=== PATIENT | male | born 1935 | race Caucasian/White ===

== ENCOUNTER 2016-07-01 11:03 | Observation (INO) | payer BC, OTHER ==
--- NOTE | 2016-07-01 11:19 | PDOC ---
*Physical Exam - Physical Exam Comments: 07/01/16 11:19 MIDLEVEL NOTE Pt seen by Midlevel Provider under my direct supervision. Pt interviewed and examined. Ancillary studies reviewed. I agree with plan as outlined by Midlevel Provider. 07/01/16 11:58 EKG Atrial fibrillation, with a ventricular response rate of 74 Normal QRS duration Normal QTC Nonspecific ST-T waves Atrial fibrillation was present on the 2014 EKG 07/01/16 14:32 Laboratory Results - last 24 hr 07/01/16 07/01/16 07/01/16 11:59 11:59 11:59 WBC 11.8 H RBC 4.30 Hgb 14.5 Hct 43.3 MCV 100.6 H MCHC 33.6 RDW 13.5 Plt Count 206 MPV 8.3 Neutrophils % 87.4 H Lymphocytes % 5.0 L Monocytes % 6.9 D Eosinophils % 0.4 D Basophils % 0.3 INR 3.91 H Sodium Potassium Chloride Carbon Dioxide Anion Gap BUN Creatinine Creat Clearance w eGFR Random Glucose Calcium Magnesium Total Bilirubin AST ALT Alkaline Phosphatase Total Protein Albumin Urine Color Ltyellow Urine Appearance Clear Urine pH 7.0 Ur Specific [place] 1.008 Urine Protein 2+ H Urine Glucose (UA) Negative Urine Ketones Negative Urine Blood 2+ H Urine Nitrite Negative Urine Bilirubin Negative Urine Urobilinogen Negative Ur Leukocyte Esterase Negative Urine RBC 3 Urine WBC 1 Ur Epithelial Cells Rare 07/01/16 12:00 WBC RBC Hgb Hct MCV MCHC RDW Plt Count MPV Neutrophils % Lymphocytes % Monocytes % Eosinophils % Basophils % INR Sodium Cancelled Potassium Cancelled Chloride Cancelled Carbon Dioxide Cancelled Anion Gap Cancelled BUN Cancelled Creatinine Cancelled Creat Clearance w eGFR Cancelled Random Glucose Cancelled Calcium Cancelled Magnesium Cancelled Total Bilirubin Cancelled AST Cancelled ALT Cancelled Alkaline Phosphatase Cancelled Total Protein Cancelled Albumin Cancelled Urine Color Urine Appearance Urine pH Ur Specific [place] Urine Protein Urine Glucose (UA) Urine Ketones Urine Blood Urine Nitrite Urine Bilirubin Urine Urobilinogen Ur Leukocyte Esterase Urine RBC Urine WBC Ur Epithelial Cells 07/01/16 14:33 LS-spine Advanced DJD Calcifications over the right upper quadrant-possible renal or gallstones There is diffuse DJD and disc space narrowing Right hip and pelvis No acute fracture is seen There is a right total hip arthroplasty stable in appearance when compared to the prior study CT scan of the head without NAD ED Treatment Course - LABORATORY CBC & Chemistry Diagram: 07/02/16 06:40 07/02/16 06:40 *DC/Admit/Observation/Transfer Diagnosis at time of Disposition: Anticoagulated on Coumadin, Weakness, Inability to ambulate due to multiple joints Head injury Qualifiers: Encounter type: initial encounter Qualified Code(s): S09.90XA - Unspecified injury of head, initial encounter Fall Qualifiers: Encounter type: initial encounter Qualified Code(s): W19.XXXA - Unspecified fall, initial encounter - Discharge Dispostion Admit: Yes
[2016-07-01 11:22] VITALS: BMI 31.2
[2016-07-01 12:13] LABS: BASOPHIL 0.3 % (0-2.0); EOSINOPHIL 0.4 % (0-4.5); MCH 33.8 pg (25.7-33.7); MCHC 33.6 g/dl (32.0-35.9); MEAN CELL VOLUME 100.6 fl (80-96); MEAN PLT VOLUME 8.3 fl (7.5-11.1); NEUTROPHILS 87.4 % (42.8-82.8); PLATELET COUNT 206 K/MM3 (134-434); RDW 13.5 % (11.9-15.9); WHITE BLOOD COUNT 11.8 K/mm3 (4.0-10.0)
[2016-07-01 12:21] LABS: URINE APPEARANCE CLEAR; URINE BILIRUBIN NEGATIVE (NEGATIVE); URINE COLOR LTYELLOW; URINE GLUCOSE (UA) NEGATIVE (NEGATIVE); URINE KETONE NEGATIVE (NEGATIVE); URINE LEUK ESTERASE NEGATIVE (NEGATIVE); URINE NITRITE NEGATIVE (NEGATIVE); URINE UROBILINOGEN NEGATIVE E.U./dl (0.2-1.0)
[2016-07-01] MEDS ORDERED: morphine CARPU-JECT 2 MG/1 ML DISP.SYRIN IVPUSH ONE ×2 (12:23→22:33)
[2016-07-01] MEDS ORDERED: morphine CARPU-JECT 4 MG/1 ML DISP.SYRIN ONE (12:27)
[2016-07-01 12:28] LABS: URINE BLOOD 2+ (NEGATIVE); URINE PROTEIN 2+ (NEGATIVE)
[2016-07-01 12:38] LABS: URINE RBC 3 /hpf (0-3); URINE WBC 1 /hpf (3-5)
--- NOTE | 2016-07-01 13:09 | PDOC ---
History of Present Illness - General Chief Complaint: Injury Stated Complaint: FALL Time Seen by Provider: 07/01/16 11:16 History Source: Patient Exam Limitations: No Limitations - History of Present Illness Initial Comments: 07/01/16 13:10 80-year-old male status post slipped in the bathroom this morning. As per patient patient was getting up a toilet and when he stood up to grab the towel bar which he normally does he was unsteady in his feet causing him to slip backwards and lowered himself to the ground. Patient states once on the ground was unable to get up and did bang the left side of his head on the toilet but denies any headache presently dizziness, or nausea. Patient also states has been having worsening arthritis and bilateral knees and had a total hip replacement done to his right side one year ago. Patient states for the past month has had progressively worsening right lower back aching radiating down his right leg without discoloration or edema. Patient does state symptoms worsen after he took a long walk with his daughter in the park and now states is unable to lift his leg up completely. Patient is currently on Coumadin secondary to A. fib and denies any recent change in dosing. Timing/Duration: 1-3 hours Severity: moderate Associated Symptoms: reports: weakness Past History - Past Medical History Allergies/Adverse Reactions: Allergies Allergy/AdvReac Type Severity Reaction Status Date / Time Penicillins Allergy Unknown Verified 07/01/16 11:18 aspirin Allergy Rash Verified 07/01/16 11:18 Home Medications: Ambulatory Orders Atorvastatin Ca [Lipitor] 10 mg PO DAILY 11/28/13 Finasteride 5 mg PO HS 11/28/13 Irbesartan [Avapro] 300 mg PO DAILY 11/28/13 Metoprolol Succinate [Toprol Xl] 50 mg PO DAILY 11/28/13 Tamsulosin HCl [Flomax -] 0.4 mg PO DAILY 11/28/13 Folic Acid 1 mg PO DAILY tablet 12/19/13 Furosemide [Lasix -] 40 mg PO DAILY 03/06/14 Tramadol HCl 50 mg PO TID PRN #15 tablet 01/26/15 Acetaminophen [Tylenol] 500 mg PO Q6H 07/01/16 Cholecalciferol (Vitamin D3) [Vitamin D3 -] 1,000 unit PO DAILY 07/01/16 Esomeprazole Magnesium 40 mg PO DAILY 07/01/16 Hypromellose/Pf [Retaine Hpmc 0.3% Eye Drops] 10 ml OP DAILY 07/01/16 Multivit-Min/FA/Lycopen/Lutein [Centrum Silver Tablet] 1 each PO DAILY 07/01/16 Warfarin Sodium [Coumadin] 2.5 mg PO DAILY 07/01/16 Anemia: No Asthma: No Cancer: Yes (Colon) Cardiac Disorders: Yes (A-fib) CVA: No COPD: No CHF: No Dementia: No Diabetes: No GI Disorders: Yes (Colon Ca,GERD) Disorders: No HTN: Yes Hypercholesterolemia: Yes Liver Disease: No Suicide Attempt (Hx): No Seizures: No Thyroid Disease: No - Surgical History Abdominal Surgery: Yes (Colon Resection 10 yrs ago) Appendectomy: No Cardiac Surgery: No Cholecystectomy: No Lung Surgery: No Neurologic Surgery: No Orthopedic Surgery: No - Immunization History Td Vaccination: Yes Immunization Up to Date: (UNSURE) - Psycho/Social/Smoking Cessation Hx Anxiety: No Suicidal Ideation: No Smoking Status: No Smoking History: Never smoked Have you smoked in the past 12 months: No Number of Cigarettes Smoked Daily: 0 Cigars Per Day: 0 Hx Alcohol Use: Yes (SOCIAL) Drug/Substance Use Hx: No Substance Use Type: None Hx Substance Use Treatment: No Patient Lives Alone: No Review of Systems - Review of Systems Able to Perform ROS?: Yes Constitutional: Yes: Weakness HEENTM: No: Symptoms Reported Respiratory: No: Symptoms reported Cardiac (ROS): No: Symptoms Reported ABD/GI: No: Symptoms Reported : No: Symptoms Reported Musculoskeletal: Yes: Back Pain, Joint Pain Integumentary: No: Symptoms Reported Neurological: Yes: Weakness. No: Numbness, Dizziness Endocrine: No: Symptoms Reported Hematologic/Lymphatic: No: Symptoms Reported *Physical Exam - Vital Signs Last Vital Signs Temp Pulse Resp BP Pulse Ox 98.1 F 82 18 156/84 100 07/01/16 11:21 07/01/16 11:21 07/01/16 11:21 07/01/16 11:21 07/01/16 11:21 - Physical Exam General Appearance: Yes: Nourished, Appropriately Dressed. No: Apparent Distress HEENT: positive: EOMI, YOHANNES, TMs Normal, Pharynx Normal. negative: Pale Conjunctivae Neck: positive: Supple. negative: Tender, Decreased range of motion Respiratory/Chest: positive: Lungs Clear, Normal Breath Sounds. negative: Respiratory Distress, Accessory Muscle Use Cardiovascular: positive: Regular Rhythm, Regular Rate. negative: Murmur Gastrointestinal/Abdominal: positive: Soft. negative: Tenderness Musculoskeletal: negative: Vertebral Tenderness (no midline tenderness) Extremity: positive: Normal Capillary Refill, Normal Inspection, Tender (rt inguinal). negative: Normal Range of Motion (unble to raise leg off of stretcher more than approx 12" ) Integumentary: positive: Normal Color, Warm, Moist Neurologic: positive: Normal Mood/Affect, Motor Strength 5/5 Heart Score/ECG Review - ECG Intrepretation Rhythm: Regular Rhythm (74 A. fib rate 74 A. fib no acute findings.) ED Treatment Course - LABORATORY CBC & Chemistry Diagram: 07/01/16 11:59 07/01/16 14:19 - ADDITIONAL ORDERS Additional order review: Laboratory Results 07/01/16 07/01/16 12:00 11:59 Sodium Cancelled Potassium Cancelled Chloride Cancelled Carbon Dioxide Cancelled Anion Gap Cancelled BUN Cancelled Creatinine Cancelled Creat Clearance w eGFR Cancelled Random Glucose Cancelled Calcium Cancelled Magnesium Cancelled Total Bilirubin Cancelled AST Cancelled ALT Cancelled Alkaline Phosphatase Cancelled Total Protein Cancelled Albumin Cancelled Urine Color Ltyellow Urine Appearance Clear Urine pH 7.0 Ur Specific [place] 1.008 Urine Protein 2+ H Urine Glucose (UA) Negative Urine Ketones Negative Urine Blood 2+ H Urine Nitrite Negative Urine Bilirubin Negative Urine Urobilinogen Negative Ur Leukocyte Esterase Negative 07/01/16 11:59 RBC 4.30 MCV 100.6 H MCHC 33.6 RDW 13.5 MPV 8.3 Neutrophils % 87.4 H Lymphocytes % 5.0 L Monocytes % 6.9 D Eosinophils % 0.4 D Basophils % 0.3 - RADIOLOGY Radiology Studies Ordered: Category Date Time Status HEAD CT WITHOUT CONTRAST [CT] Stat CT Scan 07/01/16 11:53 Ordered HIP & PELVIS-RIGHT [RAD] Stat Radiology 07/01/16 11:53 Ordered SPINE-LUMBAR ONLY [RAD] Stat Radiology 07/01/16 11:53 Ordered - Medications Given in the ED: ED Medications Discontinued Medications Generic Name Dose Route Start Last Admin Trade Name Freq PRN Reason Stop Dose Admin Morphine Sulfate 4 mg 07/01/16 12:23 07/01/16 12:31 Morphine Injection - IVPUSH 07/01/16 12:24 4 mg ONCE ONE Administration Medical Decision Making - Medical Decision Making 07/01/16 13:20 Patient here with status post slip this morning and for evaluation of worsening right hip right back, and bilateral knee pain. Patient states that hitting his head on the toilet bowl when trying to get back up but no acute or physical findings were noted on exam. Patient was ordered for labs, EKG, head CT, urine, right hip and lumbar spine x-ray. 07/01/16 15:47 Laboratory Tests 07/01/16 07/01/16 07/01/16 11:59 11:59 11:59 WBC 11.8 H Hgb 14.5 Hct 43.3 MCV 100.6 H Neutrophils % 87.4 H INR 3.91 H Sodium Potassium Chloride Carbon Dioxide Anion Gap BUN Creatinine Random Glucose Calcium Magnesium Total Bilirubin AST ALT Urine Protein 2+ H Urine Blood 2+ H Ur Leukocyte Esterase Negative Urine RBC 3 Urine WBC 1 07/01/16 14:19 WBC Hgb Hct MCV Neutrophils % INR Sodium 143 Potassium 4.0 Chloride 104 Carbon Dioxide 26 Anion Gap 13 BUN 9 Creatinine 0.6 L Random Glucose 84 Calcium 9.1 Magnesium 2.1 Total Bilirubin 0.5 AST 24 ALT 20 Urine Protein Urine Blood Ur Leukocyte Esterase Urine RBC Urine WBC Patient has received morphine IV and also now Percocet for pain control. Patient is unable to ambulate secondary to unbalance unsteadiness concerning for safety. Patient's physician Dr. Luna does not admit here but does admit to the hospitalist so will contact hospitalist for admission. 07/01/16 15:[address] negative for intracranial pathology. hip and pelvis x-ray no acute fracture. Lumbar spine shows severe degenerative joint disease without acute findings. 07/01/16 15:57 Case discussed with [employer] [facility] hospitalist who accepted the case in to admit under to [facility]. *DC/Admit/Observation/Transfer Diagnosis at time of Disposition: Anticoagulated with warfarin, Weakness, Inability to ambulate due to multiple joints Injury of head Qualifiers: Encounter type: initial encounter Qualified Code(s): S09.90XA - Unspecified injury of head, initial encounter Fall Qualifiers: Encounter type: initial encounter Qualified Code(s): W19.XXXA - Unspecified fall, initial encounter - Discharge Dispostion Admit: Yes
[2016-07-01 13:10] LABS: INR 3.91 (0.82-1.09); PROTHROMBIN TIME (PATIENT) 44.2 SEC (9.98-11.88)
[2016-07-01] MEDS ORDERED: OXYCODONE/APAP 5/325MG COMBO TABLET PO ONE (14:14)
[2016-07-01] MEDS ORDERED: OXYCODONE/APAP 5/325MG COMBO TABLET ONE (14:42)
[2016-07-01 14:57] LABS: ALBUMIN 3.7 g/dl (3.4-5.0); ALK PHOS 70 U/L (45-117); ANION GAP 13 (8-16); BILIRUBIN,TOTAL 0.5 mg/dL (0.2-1.0); CALCIUM 9.1 mg/dL (8.5-10.1); CO2 26 mmol/L (21-32); COCKROFT - GAULT 162.74; CREATININE 0.6 mg/dL (0.7-1.3); GLUCOSE,RANDOM 84 mg/dL (74-106); MAGNESIUM 2.1 mg/dL (1.8-2.4); SGOT/AST 24 U/L (15-37); SGPT/ALT 20 U/L (12-78); TOT PROT 6.6 g/dl (6.4-8.2)
--- NOTE | 2016-07-01 18:55 | HP ---
CHIEF COMPLAINT: legs gave out PCP: Dr. Luna HISTORY OF PRESENT ILLNESS: 79 year old male with a PMHx of HTN, atrial fibrillation on warfarin, colon ca ( s/p resection and chemo), SBO, arthritis, presents to ER unable to ambulate. Patient states he was using bathroom, usually when he gets up from toilet he uses towel bar in front of him to help him rise up, when he attempted this time he was unable to hold himself up, fell to the floor. He usually uses walker at home. States that he was due for physical therapy but was unable to due to recent surgery for SBO. He does have a history of severe arthritis and claims he needs a total left knee replacement. He iuis able to move both lower extremities , but elimited and with pain. ER course was notable for: (1)leukocytosis, 11.8 (2)INR 3.91 (3)Lumbar spine; hip/pelvis and head CT negative for acute pathology Recent Travel: no PAST MEDICAL HISTORY: htn, a fib, hx colon ca PAST SURGICAL HISTORY: colon CA resection, right hip replacement, sx for sbo Social History: Smoking:no Alcohol:2-3 beers per night before dinner Drugs: no Family History: Allergies Penicillins Allergy (Unknown, Verified 07/01/16 11:18) aspirin Allergy (Verified 07/01/16 11:18) Rash HOME MEDICATIONS: Home Medications Medication Instructions Recorded Atorvastatin Ca [Lipitor] 10 mg PO DAILY 11/28/13 Finasteride 5 mg PO HS 11/28/13 Irbesartan [Avapro] 300 mg PO DAILY 11/28/13 Metoprolol Succinate [Toprol Xl] 50 mg PO DAILY 11/28/13 Tamsulosin HCl [Flomax -] 0.4 mg PO DAILY 11/28/13 Folic Acid 1 mg PO DAILY tablet 12/19/13 Furosemide [Lasix -] 40 mg PO DAILY 03/06/14 Tramadol HCl 50 mg PO TID PRN #15 tablet 01/26/15 Acetaminophen [Tylenol] 500 mg PO Q6H 07/01/16 Cholecalciferol (Vitamin D3) 1,000 unit PO DAILY 07/01/16 [Vitamin D3 -] Esomeprazole Magnesium 40 mg PO DAILY 07/01/16 Hypromellose/Pf [Retaine Hpmc 0.3% 10 ml OP DAILY 07/01/16 Eye Drops] Multivit-Min/FA/Lycopen/Lutein 1 each PO DAILY 07/01/16 [Centrum Silver Tablet] Warfarin Sodium [Coumadin] 2.5 mg PO DAILY 07/01/16 REVIEW OF SYSTEMS CONSTITUTIONAL: Absent: fever, chills, diaphoresis, generalized weakness, malaise, loss of appetite, weight change HEENT: Absent: rhinorrhea, nasal congestion, throat pain, throat swelling, difficulty swallowing, mouth swelling, ear pain, eye pain, visual changes CARDIOVASCULAR: Absent: chest pain, syncope, palpitations, irregular heart rate, lightheadedness , peripheral edema RESPIRATORY: Absent: cough, shortness of breath, dyspnea with exertion, orthopnea, wheezing, stridor, hemoptysis GASTROINTESTINAL: Absent: abdominal pain, abdominal distension, nausea, vomiting, diarrhea, constipation, melena, hematochezia GENITOURINARY: Absent: dysuria, frequency, urgency, hesitancy, hematuria, flank pain, genital pain MUSCULOSKELETAL: Positive: myalgia, arthralgia, joint swelling, Absent: back pain, neck pain SKIN: Absent: rash, itching, pallor HEMATOLOGIC/IMMUNOLOGIC: Absent: easy bleeding, easy bruising, lymphadenopathy, frequent infections ENDOCRINE: Absent: unexplained weight gain, unexplained weight loss, heat intolerance, cold intolerance NEUROLOGIC: Absent: headache, focal weakness or paresthesias, dizziness, unsteady gait, seizure, mental status changes, bladder or bowel incontinence PSYCHIATRIC: Absent: anxiety, depression, suicidal or homicidal ideation, hallucinations. PHYSICAL EXAMINATION Vital Signs - 24 hr 07/01/16 17:40 Temperature 97.8 F Pulse Rate [ 74 Right Radial] Respiratory 16 Rate Blood Pressure 143/74 [Left Arm] O2 Sat by Pulse 96 Oximetry (%) GENERAL: Awake, alert, and fully oriented, in no acute distress. HEAD: Normal with no signs of trauma. EYES: Pupils equal, round and reactive to light, extraocular movements intact, sclera anicteric, conjunctiva clear. No lid lag. EARS, NOSE, THROAT: Ears normal, nares patent, oropharynx clear without exudates. Moist mucous membranes. NECK: Normal range of motion, supple without lymphadenopathy, JVD, or masses. LUNGS: Breath sounds equal, clear to auscultation bilaterally. No wheezes, and no crackles. No accessory muscle use. HEART: Regular rate and rhythm, normal S1 and S2 without murmur, rub or gallop. ABDOMEN: Soft, nontender, not distended, normoactive bowel sounds, no guarding, no rebound, no masses. No hepatomegaly or splenomegaly. MUSCULOSKELETAL: Normal range of motion at all joints. No bony deformities or tenderness. No CVA tenderness. UPPER EXTREMITIES: 2+ pulses, warm, well-perfused. No cyanosis. No clubbing. No peripheral edema. LOWER EXTREMITIES: 2+ pulses, warm, well-perfused. No calf tenderness. No peripheral edema. Decreased ROM; full strength 5/5 ; Right thigh tightness NEUROLOGICAL: Cranial nerves II-XII intact. Normal speech. Normal gait. PSYCHIATRIC: Cooperative. Good eye contact. Appropriate mood and affect. SKIN: Warm, dry, normal turgor, no rashes or lesions noted, normal capillary refill. ASSESSMENT/PLAN: 80 year old male with PMHx atrial fibrillation, htn, arthritis, presents with bilateral leg weakness; unable to ambulate. #unable to ambulate most likey secondary to arthritis progressive DJD -Imaging negative for fracture/acute pathology -physical exam negative for swelling, erythema, normal strength -tylenol prn -tramodol prn -physical therapy evaluations -possible rehab placement #leukocytosis: -UA negative: -trend in am #atrial fibrillation -INR 3.91 ; will hold for now; repeat INR #hypertension: -cont home meds FEN: Fluids: po Electrolytes: wnl Diet: regular Vte prophyaxis: not indicated INR elevated Disposition: physical therapy eval Visit type - Emergency Visit Emergency Visit: Yes ED Registration Date: 07/01/16 Care time: The patient presented to the Emergency Department on the above date and was hospitalized for further evaluation of their emergent condition. - New Patient This patient is new to me today: Yes Date on this admission: 07/02/16 - Critical Care Critical Care patient: No
--- NOTE | 2016-07-01 19:03 | PN ---
Teaching Attending Note Name of Resident: Zaynab Ladd ATTENDING PHYSICIAN STATEMENT I saw and evaluated the patient. I reviewed the resident's note and discussed the case with the resident. I agree with the resident's findings and plan as documented. SUBJECTIVE: OBJECTIVE: Vital Signs Period Temp Pulse Resp BP Sys/Hurst Pulse Ox Last 24 Hr 97.8 F-99.6 F 74-82 16-20 134-156/74-84 96-100 ASSESSMENT AND PLAN:
[2016-07-01] MEDS: traMADol HCL 50 MG TABLET PO PRN (19:12)
[2016-07-01] MEDS: ACETAMINOPHEN 500 MG TABLET (FP) PO SCH (19:14)
[2016-07-01] MEDS ORDERED: FINASTERIDE 5 MG TABLET (FP) PO SCH (22:00)
[2016-07-01] MEDS ORDERED: ATORVASTATIN CA 10 MG TABLET (FP) PO SCH (22:00)
[2016-07-02] MEDS: ACETAMINOPHEN 500 MG TABLET (FP) PO SCH ×3 (06:07→12:52)
[2016-07-02 07:30] LABS: MCH 33.8 pg (25.7-33.7); MCHC 33.5 g/dl (32.0-35.9); MEAN CELL VOLUME 101.1 fl (80-96); MEAN PLT VOLUME 8.3 fl (7.5-11.1); PLATELET COUNT 161 K/MM3 (134-434); RDW 13.5 % (11.9-15.9); WHITE BLOOD COUNT 7.5 K/mm3 (4.0-10.0)
[2016-07-02 08:07] LABS: PROTHROMBIN TIME (PATIENT) 33.8 SEC (9.98-11.88)
--- NOTE | 2016-07-02 08:16 | EKG ---
Test Reason : Blood Pressure : / mmHG Vent. Rate : 074 BPM Atrial Rate : 288 BPM P-R Int : 000 ms QRS Dur : 084 ms QT Int : 360 ms P-R-T Axes : 000 -08 024 degrees QTc Int : 399 ms ATRIAL FIBRILLATION SEPTAL INFARCT , AGE UNDETERMINED ABNORMAL ECG NO PREVIOUS ECGS AVAILABLE Confirmed by ENID BRIDGES MD ([id number]) on 07/02/2016 8:15:59 AM Referred By: Confirmed By:ENID BRIDGES MD
[2016-07-02 08:19] LABS: CALCIUM 8.7 mg/dL (8.5-10.1)
[2016-07-02 08:22] LABS: COCKROFT - GAULT 195.29; CREATININE 0.5 mg/dL (0.7-1.3); MAGNESIUM 2.1 mg/dL (1.8-2.4); PHOSPHOROUS 2.2 mg/dL (2.5-4.9)
[2016-07-02] MEDS ORDERED: TAMSULOSIN HCL 0.4 MG CAP.ER.24H (FP) PO SCH (08:30)
[2016-07-02] MEDS: traMADol HCL 50 MG TABLET PO PRN (09:24)
[2016-07-02] MEDS ORDERED: METOPROLOL SUCCINATE 50 MG TAB.SR.24H (FP) PO SCH (10:00)
[2016-07-02] MEDS ORDERED: MINERAL OIL OU SCH (10:00)
[2016-07-02] MEDS ORDERED: FUROSEMIDE 40 MG TABLET (FP) PO SCH (10:00)
[2016-07-02] MEDS ORDERED: CHOLECALCIFEROL (VITAMIN D3) 1,000 UNIT TABLET (FP) PO SCH (10:00)
[2016-07-02] MEDS ORDERED: PANTOPRAZOLE 40 MG TABLET (FP) PO SCH (10:00)
[2016-07-02] MEDS ORDERED: FOLIC ACID 1 MG TABLET (FP) PO SCH (10:00)
[2016-07-02] MEDS ORDERED: LIGHT MINERAL OIL OU SCH (10:00)
[2016-07-02 12:09] VITALS: BP 138/73
[2016-07-02 14:17] VITALS: PULSE 66; TEMP 98.2
--- NOTE | 2016-07-02 17:55 | PN ---
Teaching Attending Note Name of Resident: Zaynab Ladd ATTENDING PHYSICIAN STATEMENT I saw and evaluated the patient. I reviewed the resident's note and discussed the case with the resident. I agree with the resident's findings and plan as documented. SUBJECTIVE: OBJECTIVE: Vital Signs Period Temp Pulse Resp BP Sys/Hurst Pulse Ox Last 24 Hr 97.7 F-99.6 F 66-90 16-20 110-145/56-82 96-96 ASSESSMENT AND PLAN:
[2016-07-02] MEDS ORDERED: WARFARIN NA 2.5 MG TABLET (FP) PO SCH (18:00)
== END 2016-07-02 16:44 | disposition home or self-care (01) ==
LOC: JER 11:03 → INTOOBSV 16:00 → JERBED 16:00 → UNDOADMOB 16:00 → J6S 18:05 → JERBED 18:05 → J6S 19:05
PROVIDERS: ADMIT Internal Medicine; ATTEND Internal Medicine
DX: M17.0 Bilateral primary osteoarthritis of knee (principal); R26.2 Difficulty in walking, not elsewhere classified; D72.829 Elevated white blood cell count, unspecified; I48.91 Unspecified atrial fibrillation; Z79.01 Long term (current) use of anticoagulants; M54.5 Low back pain; I10 Essential (primary) hypertension; E78.00 Pure hypercholesterolemia, unspecified; Z96.641 Presence of right artificial hip joint; Z85.038 Personal history of other malignant neoplasm of large intestine; K21.9 Gastro-esophageal reflux disease without esophagitis; Z98.0 Intestinal bypass and anastomosis status; W18.39XA Other fall on same level, initial encounter; Y93.89 Activity, other specified; Y92.002 Bathroom of unspecified non-institutional (private) residence as the place of occurrence of the external cause
CPT/HCPCS: 36415; 70450-TC; 72100-TC; 73523-TC; 80048; 80053; 81003; 81015; 83735; 84100; 85025; 85027; 85610; 93005; 93010; 97116-GP; 97161-GP; 99285-25; G0378

== ENCOUNTER 2016-07-23 15:42 | Inpatient (IN) | payer OTHER ==
--- NOTE | 2016-07-23 16:25 | PDOC ---
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 Montoya He has chronic low back pain, and chronic leg weakness He was admitted to [facility] on 07/01/16 after falling in the bathroom due to leg weakness He states that he was trying to get off the toilet, and his legs slipped, and he was unable to grab the towel bar, and fell and struck his head He states that he has had progressive bilateral leg weakness since his surgery, and since the fall at the end of June he's become more weak He is also having gradually increasing right-sided sciatica pain He has not fallen again since the 07/01/16 fall He denies any bowel or bladder dysfunction, he denies any fevers or chills or dysuria He denies any cough or sputum He denies any nausea or vomiting He denies any chest pain He states that last night his left eye felt irritated, and thought he might have some blurred vision in his left eye He denies any focal neurologic complaints He denies any numbness or tingling He states he basically has not had any physical therapy since his hip surgery His daughter states that his legs are so weak that he can barely ambulate with his walker at this point Remainder the review of systems is negative Past History - Past Medical History Allergies/Adverse Reactions: Allergies Allergy/AdvReac Type Severity Reaction Status Date / Time Penicillins Allergy Unknown Verified 07/23/16 15:46 aspirin Allergy Rash Verified 07/23/16 15:46 Home Medications: Ambulatory Orders Atorvastatin Ca [Lipitor] 10 mg PO DAILY 11/28/13 Finasteride 5 mg PO HS 11/28/13 Irbesartan [Avapro] 300 mg PO DAILY 11/28/13 Metoprolol Succinate [Toprol Xl] 50 mg PO DAILY 11/28/13 Tamsulosin HCl [Flomax -] 0.4 mg PO DAILY 11/28/13 Folic Acid 1 mg PO DAILY tablet 12/19/13 Furosemide [Lasix -] 40 mg PO DAILY 03/06/14 Tramadol HCl 50 mg PO TID PRN #15 tablet 01/26/15 Acetaminophen [Tylenol] 500 mg PO Q6H 07/01/16 Cholecalciferol (Vitamin D3) [Vitamin D3 -] 1,000 unit PO DAILY 07/01/16 Esomeprazole Magnesium 40 mg PO DAILY 07/01/16 Hypromellose/Pf [Retaine Hpmc 0.3% Eye Drops] 10 ml OP DAILY 07/01/16 Multivit-Min/FA/Lycopen/Lutein [Centrum Silver Tablet] 1 each PO DAILY 07/01/16 Warfarin Sodium [Coumadin] 2.5 mg PO DAILY 07/01/16 Anemia: No Asthma: No Cancer: Yes (Colon) Cardiac Disorders: Yes (A-fib) CVA: No COPD: No CHF: No Dementia: No Diabetes: No GI Disorders: Yes (Colon Ca,GERD) Disorders: No HTN: Yes Hypercholesterolemia: Yes Liver Disease: No Suicide Attempt (Hx): No Seizures: No Thyroid Disease: No Other medical history: PROSTATE PROBLEM - Surgical History Abdominal Surgery: Yes (Colon Resection 10 yrs ago) Appendectomy: No Cardiac Surgery: No Cholecystectomy: No Lung Surgery: No Neurologic Surgery: No Orthopedic Surgery: No - Immunization History Td Vaccination: Yes Immunization Up to Date: (UNSURE) - Psycho/Social/Smoking Cessation Hx Anxiety: No Suicidal Ideation: No Smoking Status: No Smoking History: Never smoked Have you smoked in the past 12 months: No Number of Cigarettes Smoked Daily: 0 Cigars Per Day: 0 Information on smoking cessation initiated: No Hx Alcohol Use: Yes (RARELY SOCIAL) Drug/Substance Use Hx: No Substance Use Type: Alcohol Hx Substance Use Treatment: No *Physical Exam - Vital Signs Last Vital Signs Temp Pulse Resp BP Pulse Ox 100 F H 76 18 153/76 07/23/16 15:45 07/23/16 15:45 07/23/16 15:45 07/23/16 15:45 - Physical Exam Comments: 07/23/16 16:25 Physical exam Last Vital Signs Temp Pulse Resp BP Pulse Ox 100 F H 76 18 153/76 07/23/16 15:45 07/23/16 15:45 07/23/16 15:45 07/23/16 15:45 GENERAL: The patient is awake, alert, and fully oriented, and in no apparent distress. HEAD: Normal with no signs of trauma. EYES: Pupils are equal, patient is status post bilateral cataract surgery, extraocular movements intact I am unable to visualize his fundi bilaterally with a wall ophthalmoscope ENT: oropharynx clear without exudates. Moist mucous membranes. NECK: Normal range of motion, supple LUNGS: Breath sounds equal, clear to auscultation bilaterally. No wheezes, and no crackles. HEART: Regular rate and rhythm, normal S1 and S2 without murmur, rub or gallop. ABDOMEN: Soft, nontender, normoactive bowel sounds. No guarding, no rebound. No masses appreciated. BACK: There is diffuse mild LS-spine tenderness, and right sciatic area tenderness to palpation, without point tenderness EXTREMITIES: Normal range of motion, no edema. No clubbing or cyanosis. No cords, erythema, or tenderness. NEUROLOGICAL: Patient is alert and answering simple questions Motor strength is 3 out of 5 and equal in the lower extremities bilaterally There is full plantar flexion and dorsi flexion of the feet bilaterally Sensation is intact in the legs bilaterally There is pain in a sciatica distribution in the right lower extremity There is positive straight leg raising on the right due to pain There is negative straight leg raising on the left PSYCH: Normal mood, normal affect. SKIN: Warm, Dry, ED Treatment Course - LABORATORY CBC & Chemistry Diagram: 07/24/16 07:35 07/24/16 07:35 - RADIOLOGY Radiology Studies Ordered: Category Date Time Status CHEST - PA [RAD] Stat Radiology 07/23/16 16:15 Ordered SPINE-LUMBAR SACRAL [RAD] Stat Radiology 07/23/16 16:14 Ordered Medical Decision Making - Medical Decision Making 07/23/16 16:28 80-year-old male who is been progressively failing at home, and for reasons as noted has not had physical therapy since his hip replacement surgery 07/23/16 18:23 LS-spine series as read by me Severe multilevel DJD, with loss of disc space, bridging, and lipping There is also multilevel spondylolisthesis Chest x-ray- NAD 07/23/16 18:40 EKG Atrial fibrillation, with a ventricular response rate of 68 Left axis deviation -12 Normal QRS duration Normal QTC When compared to the EKG of 07/01/16 Atrial fibrillation was present on the prior EKG, and today's EKG is similar to the prior EKG Labwork reviewed Laboratory Results - last 24 hr 07/23/16 07/23/16 07/23/16 16:50 16:50 16:50 WBC 8.6 D RBC 4.08 D Hgb 13.8 D Hct 40.3 D MCV 98.8 H MCHC 34.3 RDW 12.9 Plt Count 211 D MPV 8.7 D INR 2.61 H Sodium Potassium Chloride Carbon Dioxide Anion Gap BUN Creatinine Creat Clearance w eGFR Random Glucose Calcium Magnesium Total Bilirubin AST ALT Alkaline Phosphatase Creatine Kinase 46 Troponin I 0.28 D Total Protein Albumin 07/23/16 16:50 WBC RBC Hgb Hct MCV MCHC RDW Plt Count MPV INR Sodium 136 Potassium 3.9 D Chloride 102 Carbon Dioxide 25 Anion Gap 9 BUN 8 D Creatinine 0.6 Creat Clearance w eGFR > 60 Random Glucose 106 D Calcium 9.3 Magnesium 2.0 Total Bilirubin 0.7 AST 22 D ALT 11 D Alkaline Phosphatase 57 Creatine Kinase Troponin I Total Protein 6.6 D Albumin 4.2 D Troponin 0.28 Patient needs to be cleared for transfer to inpatient rehabilitation, and serial troponins trended Will also need MRI given cancer hx, and pain mgmt eval Case discussed with hospitalist-will admit *DC/Admit/Observation/Transfer Diagnosis at time of Disposition: Intractable low back pain, Ambulatory dysfunction, Elevated troponin - Discharge Dispostion Condition at time of disposition: Improved Admit: Yes
[2016-07-23 17:08] LABS: MCH 33.8 pg (25.7-33.7); MCHC 34.3 g/dl (32.0-35.9); MEAN CELL VOLUME 98.8 fl (80-96); MEAN PLT VOLUME 8.7 fl (7.5-11.1); PLATELET COUNT 211 K/MM3 (134-434); RDW 12.9 % (11.9-15.9); WHITE BLOOD COUNT 8.6 K/mm3 (4.0-10.8)
[2016-07-23 17:26] LABS: INR 2.61 (0.82-1.09); PROTHROMBIN TIME (PATIENT) 28.7 SEC (10.2-13.0)
[2016-07-23 17:33] LABS: ALBUMIN 4.2 g/dl (3.5-5.0); ALK PHOS 57 U/L (32-92); ANION GAP 9 (8-16); BILIRUBIN,TOTAL 0.7 mg/dl (0.2-1.0); CALCIUM 9.3 mg/dl (8.4-10.2); CO2 25 mmol/L (22-28); CREATININE 0.6 mg/dl (0.6-1.3); GLUCOSE,RANDOM 106 mg/dl (74-106); SGOT/AST 22 U/L (10-42); SGPT/ALT 11 U/L (10-40); TOT PROT 6.6 g/dl (6.4-8.3)
[2016-07-23] MEDS ORDERED: ACETAMINOPHEN 1000 MG/100 ML VIAL (NON FORMULARY) IVPB ONE (18:09)
[2016-07-23] MEDS ORDERED: ACETAMINOPHEN INJECTION 100 ML IVPB ONE (18:23)
[2016-07-23 18:32] LABS: TROPONIN I (DFP) 0.28 ng/ml (0.03-0.50)
[2016-07-23] MEDS ORDERED: traMADol HCL 50 MG TABLET PO PRN (19:12)
[2016-07-23] MEDS ORDERED: ACETAMINOPHEN 500 MG TABLET (FP) PO PRN (19:15)
[2016-07-23] MEDS ORDERED: ONDANSETRON 4 MG/2 ML VIAL IVPB PRN (19:20)
[2016-07-23] MEDS ORDERED: ARTIFICIAL TEARS (POLYVINYL ALCOHOL 1.4%) OPTH DROPS OU PRN (19:21)
[2016-07-23] MEDS ORDERED: HYDROmorphone HCL CARPU-JECT 1 MG/1 ML DISP.SYRIN IVPUSH ONE ×2 (19:43→20:17)
[2016-07-23] MEDS ORDERED: HYDROmorphone HCL CARPU-JECT 2 MG/1 ML DISP.SYRIN ONE (19:44)
--- NOTE | 2016-07-23 19:44 | PDOC ---
[id number] 100 07/23/16 15:45 07/23/16 18:59 07/23/16 18:59 07/23/16 18:59 07/23/16 18:59 ED Treatment Course - LABORATORY CBC & Chemistry Diagram: 07/23/16 16:50 07/23/16 16:50 - ADDITIONAL ORDERS Additional order review: Laboratory Results 07/23/16 07/23/16 07/23/16 16:50 16:50 16:50 INR 2.61 H Sodium 136 Potassium 3.9 D Chloride 102 Carbon Dioxide 25 Anion Gap 9 BUN 8 D Creatinine 0.6 Creat Clearance w eGFR > 60 Random Glucose 106 D Calcium 9.3 Magnesium 2.0 Total Bilirubin 0.7 AST 22 D ALT 11 D Alkaline Phosphatase 57 Creatine Kinase 46 Troponin I 0.28 D Total Protein 6.6 D Albumin 4.2 D 07/23/16 16:50 RBC 4.08 D MCV 98.8 H MCHC 34.3 RDW 12.9 MPV 8.7 D - Medications Given in the ED: ED Medications Discontinued Medications Generic Name Dose Route Start Last Admin Trade Name Freq PRN Reason Stop Dose Admin Acetaminophen 1,000 mg 07/23/16 18:09 07/23/16 18:25 Ofirmev Injection - IVPB 07/23/16 18:10 1,000 mg ONCE ONE Administration Progress Note - Progress Note Progress Note: Care of this patient receives from Dr. Rothman. Patient required 2 additional doses of 0.5 mg of Dilaudid IV for analgesia. Otherwise, he was stable without development of new problems and was transferred to his admission bed. *DC/Admit/Observation/Transfer Diagnosis at time of Disposition: Intractable low back pain, Ambulatory dysfunction, Elevated troponin - Discharge Dispostion Condition at time of disposition: Stable
--- NOTE | 2016-07-23 20:45 | HP ---
CHIEF COMPLAINT: Back Pain, Leg Weakness PCP: HISTORY OF PRESENT ILLNESS: This is a 80 y/o male with a past medical history of A-fib, (Coumadin), HTN, HLD , Colon Ca (s/p resection, chemo, 2012), Chronic Back Pain, Chronic Leg Weakness , GERD. Who presents to the ED with lower lumbar pain, leg weakness and difficulty ambulating. He was admitted to [facility] on 07/01/16 after falling in the bathroom due to leg weakness. Patient reports having increased right-sided sciatica pain with little relief after taking Tylenol ES. Patient reports having difficulty ambulating with his walker secondary to his leg weakness. Patient reports no new falls, since the 07/01/16 fall. Patient reports since having the right hip replacement, he has had recurrent SBOs in which he underwent surgery. Subsequently, he has not been able to go to Rehab for PT. Patient denies bladder or bowel incontinence. Patient denies fever, chills, cough, SOB, CP, AP, N/V/D, constipation, dysuria. ER course was notable for: (1) L-spine xray- severe DJD (2) Trop 0.28 (3) EKG- Afib 68 bpm Recent Travel: None PAST MEDICAL HISTORY: See HPI PAST SURGICAL HISTORY: See HPI Social History: Smoking: Never Alcohol: Socially Drugs: None Lives alone, uses a walker Family History: Non- Contributory Allergies Penicillins Allergy (Unknown, Verified 07/23/16 15:46) aspirin Allergy (Verified 07/23/16 15:46) Rash HOME MEDICATIONS: Home Medications Medication Instructions Recorded Atorvastatin Ca [Lipitor] 10 mg PO DAILY 11/28/13 Finasteride 5 mg PO HS 11/28/13 Irbesartan [Avapro] 300 mg PO DAILY 11/28/13 Metoprolol Succinate [Toprol Xl] 50 mg PO DAILY 11/28/13 Tamsulosin HCl [Flomax -] 0.4 mg PO DAILY 11/28/13 Folic Acid 1 mg PO DAILY tablet 12/19/13 Furosemide [Lasix -] 40 mg PO DAILY 03/06/14 Tramadol HCl 50 mg PO TID PRN #15 tablet 01/26/15 Acetaminophen [Tylenol] 500 mg PO Q6H 07/01/16 Cholecalciferol (Vitamin D3) 1,000 unit PO DAILY 07/01/16 [Vitamin D3 -] Esomeprazole Magnesium 40 mg PO DAILY 07/01/16 Hypromellose/Pf [Retaine Hpmc 0.3% 10 ml OP DAILY 07/01/16 Eye Drops] Multivit-Min/FA/Lycopen/Lutein 1 each PO DAILY 07/01/16 [Centrum Silver Tablet] Warfarin Sodium [Coumadin] 2.5 mg PO DAILY 07/01/16 REVIEW OF SYSTEMS CONSTITUTIONAL: Absent: fever, chills, diaphoresis, generalized weakness, malaise, loss of appetite, weight change HEENT: Absent: rhinorrhea, nasal congestion, throat pain, throat swelling, difficulty swallowing, mouth swelling, ear pain, eye pain, visual changes CARDIOVASCULAR: Absent: chest pain, syncope, palpitations, irregular heart rate, lightheadedness , peripheral edema RESPIRATORY: Absent: cough, shortness of breath, dyspnea with exertion, orthopnea, wheezing, stridor, hemoptysis GASTROINTESTINAL: Absent: abdominal pain, abdominal distension, nausea, vomiting, diarrhea, constipation, melena, hematochezia GENITOURINARY: Absent: dysuria, frequency, urgency, hesitancy, hematuria, flank pain, genital pain MUSCULOSKELETAL: myalgia, arthralgia, back pain Absent: myalgia, arthralgia, joint swelling, neck pain SKIN: Absent: rash, itching, pallor HEMATOLOGIC/IMMUNOLOGIC: Absent: easy bleeding, easy bruising, lymphadenopathy, frequent infections ENDOCRINE: Absent: unexplained weight gain, unexplained weight loss, heat intolerance, cold intolerance NEUROLOGIC: unsteady gait Absent: headache, focal weakness or paresthesias, dizziness, seizure, mental status changes, bladder or bowel incontinence PSYCHIATRIC: Absent: anxiety, depression, suicidal or homicidal ideation, hallucinations. PHYSICAL EXAMINATION Vital Signs - 24 hr 07/23/16 20:35 Pulse Rate 66 Pulse Rate [ 66 Left Radial] Respiratory 14 Rate Blood Pressure 126/88 [Right Arm] O2 Sat by Pulse 97 Oximetry (%) GENERAL: Awake, alert, and fully oriented, in moderate distress. HEAD: Normal with no signs of trauma. EYES: Pupils equal, round and reactive to light, extraocular movements intact, sclera anicteric, conjunctiva clear. No lid lag. EARS, NOSE, THROAT: Ears normal, nares patent, oropharynx clear without exudates. Moist mucous membranes. NECK: Normal range of motion, supple without lymphadenopathy, JVD, or masses. LUNGS: Breath sounds equal, clear to auscultation bilaterally. No wheezes, and no crackles. No accessory muscle use. HEART: Irregular rate and rhythm, 2/6 systolic murmur normal S1 and S2, rub or gallop. ABDOMEN: Soft, nontender, not distended, normoactive bowel sounds, no guarding, no rebound, no masses. No hepatomegaly or splenomegaly. MUSCULOSKELETAL: Limited range of motion at all joints. tenderness to palpation lumbar, right hip, RLE. No bony deformities. No CVA tenderness. UPPER EXTREMITIES: 2+ pulses, warm, well-perfused. No cyanosis. No clubbing. No peripheral edema. LOWER EXTREMITIES: 2+ pulses, warm, well-perfused. No calf tenderness. No peripheral edema. NEUROLOGICAL: Cranial nerves II-XII intact. Normal speech. Gait not observed. PSYCHIATRIC: Cooperative. Good eye contact. Appropriate mood and affect. SKIN: Erythema patch noted to anterior RLE. Warm, dry, normal turgor, no rashes or lesions noted, normal capillary refill. Laboratory Results - last 24 hr 07/23/16 07/23/16 07/23/16 16:50 16:50 16:50 WBC 8.6 D RBC 4.08 D Hgb 13.8 D Hct 40.3 D MCV 98.8 H MCHC 34.3 RDW 12.9 Plt Count 211 D MPV 8.7 D INR 2.61 H Sodium Potassium Chloride Carbon Dioxide Anion Gap BUN Creatinine Creat Clearance w eGFR Random Glucose Calcium Magnesium Total Bilirubin AST ALT Alkaline Phosphatase Creatine Kinase 46 Troponin I 0.28 D Total Protein Albumin 07/23/16 07/23/16 16:50 22:51 WBC RBC Hgb Hct MCV MCHC RDW Plt Count MPV INR Sodium 136 Potassium 3.9 D Chloride 102 Carbon Dioxide 25 Anion Gap 9 BUN 8 D Creatinine 0.6 Creat Clearance w eGFR > 60 Random Glucose 106 D Calcium 9.3 Magnesium 2.0 Total Bilirubin 0.7 AST 22 D ALT 11 D Alkaline Phosphatase 57 Creatine Kinase 40 Troponin I 0.03 D Total Protein 6.6 D Albumin 4.2 D ASSESSMENT/PLAN: This is a 80 y/o male with a PMHx of: HTN, Afib (on Coumadin), Colon Ca (s/p colon resection, Chemo 2011), Chronic Back Pain, Chronic leg weakness, GERD, BPH. Admitted for Intractable Back Pain, Unable to Ambulate for further evaluation of their emergent condition. Plan: 1. Intractable Back Pain- Pain Management Consult, Eval for Short Term Rehab 2. Physical Therapy- condition, strength 3. Hypertension- Continue home meds, check renal function 4. Afib- Continue home meds 5. HLD- Continue home meds, monitor LFTs 6. GERD- PPI FEN - Tolerates PO Fluids - Replete lytes prn - Low Na, Low Cholesterol Diet Problem List - Problem (1) Intractable low back pain Assessment/Plan: - Likely secondary to sever DJD - L- spine report- - Dilaudid, Tylenol given in ED without improvement - Appreciate Pain Management Consult - Morphine Sulfate, Tramadol, Tylenol prn - Colace - PT - Monitor vitals Code(s): M54.5 - LOW BACK PAIN (2) Inability to ambulate due to multiple joints Assessment/Plan: - Likely secondary to severe DJD - PT for strengthening and conditioning - Consider short term Rehab Placement Code(s): R26.2 - DIFFICULTY IN WALKING, NOT ELSEWHERE CLASSIFIED (3) Ambulatory dysfunction Assessment/Plan: - See Above Code(s): R26.2 - DIFFICULTY IN WALKING, NOT ELSEWHERE CLASSIFIED (4) Elevated troponin Assessment/Plan: - Likely secondary to aortic valve disease vs exertion - Serial Enzymes - Continue to monitor and treat with interventions accordingly Code(s): R74.8 - ABNORMAL LEVELS OF OTHER SERUM ENZYMES (5) Anticoagulated on Coumadin Assessment/Plan: - Afib hx - Continue Coumadin - Daily Series INRs Code(s): Z51.81 - ENCOUNTER FOR THERAPEUTIC DRUG LEVEL MONITORING Z79.01 - PRISON (CURRENT) USE OF ANTICOAGULANTS (6) Atrial fibrillation Assessment/Plan: - Rate Controlled - EKG reviewed - Continue home meds Code(s): I48.91 - UNSPECIFIED ATRIAL FIBRILLATION Qualifiers: Atrial fibrillation type: chronic Qualified Code(s): I48.2 - Chronic atrial fibrillation (7) Hip osteoarthritis Assessment/Plan: - s/p R-THR - Continue home meds - PT Code(s): M16.9 - OSTEOARTHRITIS OF HIP, UNSPECIFIED (8) Benign prostate hyperplasia Assessment/Plan: - Continue home med Code(s): N40.0 - BENIGN PROSTATIC HYPERPLASIA WITHOUT LOWER URINRY TRACT SYMP (9) Hypertension Assessment/Plan: - Controlled - Monitor BP - Continue home meds - Low Na Diet - Monitor renal function Code(s): I10 - ESSENTIAL (PRIMARY) HYPERTENSION Qualifiers: Hypertension type: essential hypertension Qualified Code(s): I10 - Essential (primary) hypertension (10) Hyperlipidemia Assessment/Plan: - Continue home med - Monitor LFTs Code(s): E78.5 - HYPERLIPIDEMIA, UNSPECIFIED (11) History of colon cancer Assessment/Plan: - Hx Colon Ca s/p resection, completed chemo - f/u with oncology as indicated in outpatient Code(s): Z85.038 - PERSONAL HISTORY OF MALIGNANT NEOPLASM OF LARGE INTESTINE (12) DVT prophylaxis Assessment/Plan: - OOB - SCDs - Continue Coumadin Code(s): [id number] - Visit type - Emergency Visit Emergency Visit: Yes ED Registration Date: 07/23/16 Care time: The patient presented to the Emergency Department on the above date and was hospitalized for further evaluation of their emergent condition. - New Patient This patient is new to me today: Yes Date on this admission: 07/23/16 - Critical Care Critical Care patient: No
[2016-07-23 21:54] VITALS: BMI 29.0
[2016-07-23] MEDS: WARFARIN NA 2.5 MG TABLET (FP) PO SCH (22:18)
[2016-07-23] MEDS: FINASTERIDE 5 MG TABLET (FP) PO SCH (22:19)
[2016-07-23] MEDS: DOCUSATE SODIUM 100 MG CAPSULE (FP) PO SCH (22:19)
[2016-07-23 23:31] LABS: TROPONIN I (DFP) 0.03 ng/ml (0.03-0.50)
[2016-07-24] MEDS: morphine CARPU-JECT 2 MG/1 ML DISP.SYRIN IVPUSH PRN ×4 (01:56→19:28)
[2016-07-24] MEDS: DOCUSATE SODIUM 100 MG CAPSULE (FP) PO SCH ×3 (05:47→21:27)
[2016-07-24] MEDS: TAMSULOSIN HCL 0.4 MG CAP.ER.24H (FP) PO SCH (07:37)
--- NOTE | 2016-07-24 08:09 | CONSULT ---
Consult Consult Specialty:: pain medicine Referred by:: dr murguia Reason for Consultation:: back and right leg pain - History of Present Illness Chief Complaint: back pain History of Present Illness: 80 y/o male with a past medical history of A-fib, (Coumadin), HTN, HLD, Colon Ca (s/p resection, chemo, 2012), Chronic Back Pain, Chronic Leg Weakness, GERD. Who presents to the ED with lower lumbar pain, leg weakness and difficulty ambulating. He was admitted to [facility] on 07/01/16 after falling in the bathroom due to leg weakness. Patient reports having increased right-sided sciatica pain with little relief after taking Tylenol ES. Patient reports having difficulty ambulating with his walker secondary to his leg weakness. Patient reports no new falls, since the 07/01/16 fall. Patient reports since having the right hip replacement, he has had recurrent SBOs in which he underwent surgery. Subsequently, he has not been able to go to Rehab for PT. Patient denies bladder or bowel incontinence. Patient denies fever, chills, cough, SOB, CP, AP, N/V/D, constipation, dysuria. ER course was notable for: (1) L-spine xray- severe DJD - Past Medical History Cardio/Vascular: Yes: AFIB, HTN, Hyperlipdemia Gastrointestinal: Yes: GERD, Other (adhesions/recurrent SBO) Renal/: Yes: BPH Musculoskeletal: Yes: Osteoarthritis (right hip, left knee) ENT: Yes: Allergic Rhinitis - Past Surgical History Past Surgical History: Yes: Colectomy (2001), Hernia Repair (2002) - Alcohol/Substance Use Hx Alcohol Use: Yes (RARELY SOCIAL) History of Substance Use: reports: None - Smoking History Smoking history: Never smoked Have you smoked in the past 12 months: No Aproximately how many cigarettes per day: 0 - Social History ADL: Independent Home Medications - Allergies Allergies/Adverse Reactions: Allergies Allergy/AdvReac Type Severity Reaction Status Date / Time Penicillins Allergy Unknown Verified 07/23/16 15:46 aspirin Allergy Rash Verified 07/23/16 15:46 - Home Medications Home Medications: Ambulatory Orders Atorvastatin Ca [Lipitor] 10 mg PO DAILY 11/28/13 Finasteride 5 mg PO HS 11/28/13 Irbesartan [Avapro] 300 mg PO DAILY 11/28/13 Metoprolol Succinate [Toprol Xl] 50 mg PO DAILY 11/28/13 Tamsulosin HCl [Flomax -] 0.4 mg PO DAILY 11/28/13 Folic Acid 1 mg PO DAILY tablet 12/19/13 Furosemide [Lasix -] 40 mg PO DAILY 03/06/14 Tramadol HCl 50 mg PO TID PRN #15 tablet 01/26/15 Acetaminophen [Tylenol] 500 mg PO Q6H 07/01/16 Cholecalciferol (Vitamin D3) [Vitamin D3 -] 1,000 unit PO DAILY 07/01/16 Esomeprazole Magnesium 40 mg PO DAILY 07/01/16 Hypromellose/Pf [Retaine Hpmc 0.3% Eye Drops] 10 ml OP DAILY 07/01/16 Multivit-Min/FA/Lycopen/Lutein [Centrum Silver Tablet] 1 each PO DAILY 07/01/16 Warfarin Sodium [Coumadin] 2.5 mg PO DAILY 07/01/16 Family Disease History - Family Disease History Family Disease History: Other: Father ( 63 lung ca), Mother ( 60 throat ca) Physical Exam Vital Signs: Vital Signs Temperature 98.3 F 07/24/16 06:13 Pulse Rate 59 L 07/24/16 06:13 Respiratory Rate 19 07/24/16 06:13 Blood Pressure 122/71 07/24/16 06:13 O2 Sat by Pulse Oximetry (%) 96 07/24/16 06:13 Musculoskeletal: Yes: Back Pain, Muscle Pain Assessment/Plan Lumbar radiculopathy 1. The patient should consider getting preferrably an MRI lumbar spine non contrast (if not possible then CT scan lumbar spine non contrast) to assess his radiculopathy 2. The patient may benefit from an KILLIAN after reviewing the above imaging study- BUT the patient is on coumadin and would need clearance to hold that medication for 5 days prior to procedure. This may not be possible on this admission due to slightly elevated troponins. 3. Consider PT/Rehab eval 4. Pharmacologically- The patient reports relief after taking tramadol in the past. Please start this 1 tab PO q6h prn pain
[2016-07-24 08:45] LABS: ALBUMIN 3.7 g/dl (3.5-5.0); ALK PHOS 50 U/L (32-92); ANION GAP 7 (8-16); BILIRUBIN,TOTAL 0.8 mg/dl (0.2-1.0); CALCIUM 9.1 mg/dl (8.4-10.2); CO2 26 mmol/L (22-28); CREATININE 0.6 mg/dl (0.6-1.3); GLUCOSE,RANDOM 88 mg/dl (74-106); MAGNESIUM 1.9 mg/dL (1.8-2.4); SGOT/AST 18 U/L (10-42); SGPT/ALT 13 U/L (10-40)
[2016-07-24 09:04] LABS: BASOPHIL 0.3 % (0-2.0); EOSINOPHIL 1.7 % (0-4.5); MCH 33.9 pg (25.7-33.7); MCHC 34.3 g/dl (32.0-35.9); MEAN PLT VOLUME 8.4 fl (7.5-11.1); NEUTROPHILS 77.5 % (42.8-82.8); PLATELET COUNT 189 K/MM3 (134-434); RDW 12.8 % (11.9-15.9); WHITE BLOOD COUNT 7.2 K/mm3 (4.0-10.8)
[2016-07-24 09:11] LABS: INR 2.1 (0.82-1.09); PROTHROMBIN TIME (PATIENT) 23.2 SEC (10.2-13.0)
[2016-07-24] MEDS: MULTIVITAMINS THER W-MINERALS COMBO TABLET (FP) PO SCH (09:36)
[2016-07-24] MEDS: METOPROLOL SUCCINATE 50 MG TAB.SR.24H (FP) PO SCH (09:36)
[2016-07-24] MEDS: FOLIC ACID 1 MG TABLET (FP) PO SCH (09:37)
[2016-07-24] MEDS: ATORVASTATIN CA 10 MG TABLET (FP) PO SCH (09:37)
[2016-07-24] MEDS: LOSARTAN POTASSIUM 50 MG TABLET (FP) PO SCH (09:37)
[2016-07-24] MEDS: PANTOPRAZOLE 40 MG TABLET (FP) PO SCH (09:38)
[2016-07-24] MEDS: CHOLECALCIFEROL (VITAMIN D3) 1,000 UNIT TABLET (FP) PO SCH (09:38)
[2016-07-24] MEDS ORDERED: traMADol HCL 50 MG TABLET PO PRN (10:21)
--- NOTE | 2016-07-24 10:25 | PN ---
[id number] OBJECTIVE: patient is a 80 y/o male with a past medical history of A-fib, ( Coumadin), HTN, HLD, Colon Ca (s/p resection, chemo, 2011), Chronic Back Pain, Chronic Leg Weakness, and GERD. patient was admitted from the emergency department for intractable back pain. Vital Signs Period Temp Pulse Resp BP Sys/Hurst Pulse Ox Last 24 Hr 98.3 F-98.6 F 58-78 14-19 113-126/54-88 96-98 GENERAL: The patient is awake, alert, and fully oriented, in no acute distress. HEAD: Normal with no signs of trauma. EYES: PERRL, extraocular movements intact, sclera anicteric, conjunctiva clear. No ptosis. ENT: Ears normal, nares patent, oropharynx clear without exudates, moist mucous membranes. NECK: Trachea midline, full range of motion, supple. LUNGS: Breath sounds equal, clear to auscultation bilaterally, no wheezes, no crackles, no accessory muscle use. HEART: Irregular rate and rhythm, S1, S2, 2/6 systolic murmur, rub or gallop. ABDOMEN: Soft, nontender, nondistended, normoactive bowel sounds, no guarding, no rebound, no hepatosplenomegaly, no masses. EXTREMITIES: 2+ pulses, warm, well-perfused, no edema. MS: +right SLR at 45 degress, negative left SLR, paraspinal tenderness noted to L5 and S1 NEUROLOGICAL: Cranial nerves II through XII grossly intact. Normal speech, gait not observed. PSYCH: Normal mood, normal affect. SKIN: Warm, dry, normal turgor, no rashes or lesions noted Laboratory Results - last 24 hr 07/23/16 07/24/16 07/24/16 22:51 07:35 07:35 WBC 7.2 RBC 3.97 L Hgb 13.4 Hct 39.3 MCV 99.0 H MCHC 34.3 RDW 12.8 Plt Count 189 MPV 8.4 Neutrophils % 77.5 Lymphocytes % 13.5 Monocytes % 7.0 Eosinophils % 1.7 Basophils % 0.3 INR Sodium Potassium Chloride Carbon Dioxide Anion Gap BUN Creatinine Creat Clearance w eGFR Random Glucose Calcium Magnesium Total Bilirubin AST ALT Alkaline Phosphatase Creatine Kinase 40 73 Troponin I 0.03 D Total Protein Albumin 07/24/16 07/24/16 07:35 07:35 WBC RBC Hgb Hct MCV MCHC RDW Plt Count MPV Neutrophils % Lymphocytes % Monocytes % Eosinophils % Basophils % INR 2.10 H Sodium 138 Potassium 4.6 Chloride 105 Carbon Dioxide 26 Anion Gap 7 L BUN 8 Creatinine 0.6 Creat Clearance w eGFR > 60 Random Glucose 88 Calcium 9.1 Magnesium 1.9 Total Bilirubin 0.8 AST 18 ALT 13 Alkaline Phosphatase 50 Creatine Kinase Troponin I Total Protein 6.0 L Albumin 3.7 Laboratory Tests 07/23/16 07/23/16 16:50 22:51 Troponin I 0.28 D 0.03 D Laboratory Tests 07/24/16 07:35 INR 2.10 H Active Medications Generic Name Dose Route Start Last Admin Trade Name Freq PRN Reason Stop Dose Admin Acetaminophen 500 mg 07/23/16 19:15 Tylenol - PO Q6H PRN PAIN OR FEVER Artificial Tears 1 drop 07/23/16 19:21 Artificial Tears OU DAILY PRN DRY EYES Atorvastatin Calcium 10 mg 07/24/16 10:00 07/24/16 09:37 Lipitor - PO 10 mg DAILY KAROLINA Administration Cholecalciferol 1,000 unit 07/24/16 10:00 07/24/16 09:38 Vitamin D3 - PO 1,000 unit DAILY K[place] Administration Docusate Sodium 100 mg 07/23/16 22:00 07/24/16 05:47 Colace - PO 100 mg TID KAROLINA Administration Finasteride 5 mg 07/23/16 22:00 07/23/16 22:19 Proscar - PO 5 mg HS KAROLINA Administration Folic Acid 1 mg 07/24/16 10:00 07/24/16 09:37 Folic Acid - PO 1 mg DAILY KAROLINA Administration Furosemide 40 mg 07/24/16 10:00 Lasix - PO DAILY KAROLINA Losartan Potassium 100 mg 07/24/16 10:00 07/24/16 09:37 Cozaar - PO 100 mg DAILY K[place]INA Administration Metoprolol Succinate 50 mg 07/24/16 10:00 07/24/16 09:36 Toprol Xl - PO 50 mg DAILY KAROLINA Administration Morphine Sulfate 2 mg 07/23/16 19:19 07/24/16 05:43 Morphine Injection - IVPUSH 2 mg Q4H PRN Administration PAIN Multivitamins/Minerals 1 each 07/24/16 10:00 07/24/16 09:36 Theragran-M PO 1 each DAILY KAROLINA Administration Ondansetron HCl 4 mg 07/23/16 19:20 Zofran Injection IVPB Q6H PRN NAUSEA Pantoprazole Sodium 40 mg 07/24/16 10:00 07/24/16 09:38 Protonix - PO 40 mg DAILY KAROLINA Administration Tamsulosin HCl 0.4 mg 07/24/16 08:30 07/24/16 07:37 Flomax - PO 0.4 mg DAILY@0830 K[place] Administration Warfarin Sodium 2.5 mg 07/23/16 19:30 07/23/16 22:18 Coumadin - PO 2.5 mg DAILY@1800 KAROLINA Administration IMAGING xray of lumbar spine: DJD xray of chest xray: no acute pathology ASSESSMENT/PLAN: 1) MS: lumbar back pain - pain management Dr Cotton consulted, advised ultram 50mg q6h pain, continue morphine 2mg IV prn for breakthrough pain - pt eval - pt has a history of colon ca will order mri of lumbar spine r/o metastic disease - urinalysis ordered - evaluated by Dr Cotton, pt may benefit from a KILLIAN as outpatient. 2. 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 BPH - continue flomax, monitor I&O f/e/n - low sodium diet - replete lytes prn ppx - pt eval - protonix - oob - scd dispo: requires inpatient admission, pt requesting SNF for short term rehab Visit type - Emergency Visit Emergency Visit: Yes ED Registration Date: 07/23/16 Care time: The patient presented to the Emergency Department on the above date and was hospitalized for further evaluation of their emergent condition. - New Patient This patient is new to me today: Yes Date on this admission: 07/24/16 - Critical Care Critical Care patient: No - Discharge Referral Referred to [facility] Med P.C.: No
[2016-07-24] MEDS: FUROSEMIDE 40 MG TABLET (FP) PO SCH (11:00)
[2016-07-24 12:36] LABS: TROPONIN I (DFP) 0.03 ng/ml (0.03-0.50)
--- NOTE | 2016-07-24 14:24 | EKG ---
Test Reason : Blood Pressure : / mmHG Vent. Rate : 068 BPM Atrial Rate : 082 BPM P-R Int : 000 ms QRS Dur : 080 ms QT Int : 382 ms P-R-T Axes : 000 -12 -01 degrees QTc Int : 406 ms ATRIAL FIBRILLATION NONSPECIFIC T WAVE ABNORMALITY ABNORMAL ECG WHEN COMPARED WITH ECG OF 01-JUL-2016 11:17, CRITERIA FOR SEPTAL INFARCT ARE NO LONGER PRESENT Confirmed by MONIKA LARA MD ([id number] on 07/24/2016 2:24:17 PM Referred By: FIGUEROA Confirmed By:MONIKA LARA MD
[2016-07-24] MEDS: WARFARIN NA 2.5 MG TABLET (FP) PO SCH (17:03)
[2016-07-24] MEDS ORDERED: WARFARIN NA 2.5 MG TABLET (FP) PO SCH (18:00)
[2016-07-24 18:49] LABS: PH,URINE 8.5 (4.5-8); URINE APPEARANCE Clear; URINE BILIRUBIN Negative (NEGATIVE); URINE GLUCOSE (UA) Negative (NEGATIVE); URINE KETONE Negative (NEGATIVE); URINE LEUK ESTERASE Negative (NEGATIVE); URINE NITRITE Negative (NEGATIVE); URINE PROTEIN Negative (NEGATIVE); URINE UROBILINOGEN 0.2 E.U/dl (0.2-1.0)
[2016-07-24 19:00] LABS: URINE BLOOD TRACE (NEGATIVE); URINE COLOR YELLOW
[2016-07-24] MEDS: FINASTERIDE 5 MG TABLET (FP) PO SCH (21:27)
--- NOTE | 2016-07-24 22:46 | PN ---
Progress Note (short form) - Note Progress Note: MRI Reviewed- possible large disc extrusion vs hematoma Patient will need spine surgery evaluation prior to discharge. Patient may need surgical decompression. Please recall PRN
[2016-07-24 23:54] LABS: URINE BACTERIA 1+ /hpf (NEGATIVE); URINE RBC 0-3 /hpf (0-3); URINE WBC 0-3 (3-5)
[2016-07-25] MEDS: morphine CARPU-JECT 2 MG/1 ML DISP.SYRIN IVPUSH PRN (03:07)
[2016-07-25 05:53] VITALS: BP 130/63; PULSE 71; TEMP 98.3
[2016-07-25] MEDS: DOCUSATE SODIUM 100 MG CAPSULE (FP) PO SCH ×2 (06:10→13:49)
[2016-07-25] MEDS: ATORVASTATIN CA 10 MG TABLET (FP) PO SCH (09:14)
[2016-07-25] MEDS: CHOLECALCIFEROL (VITAMIN D3) 1,000 UNIT TABLET (FP) PO SCH (09:14)
[2016-07-25] MEDS: MULTIVITAMINS THER W-MINERALS COMBO TABLET (FP) PO SCH (09:14)
[2016-07-25] MEDS: FOLIC ACID 1 MG TABLET (FP) PO SCH (09:14)
[2016-07-25] MEDS: FUROSEMIDE 40 MG TABLET (FP) PO SCH (09:14)
[2016-07-25] MEDS: TAMSULOSIN HCL 0.4 MG CAP.ER.24H (FP) PO SCH (09:14)
[2016-07-25] MEDS: METOPROLOL SUCCINATE 50 MG TAB.SR.24H (FP) PO SCH (09:14)
[2016-07-25] MEDS: LOSARTAN POTASSIUM 50 MG TABLET (FP) PO SCH (09:14)
[2016-07-25] MEDS: PANTOPRAZOLE 40 MG TABLET (FP) PO SCH (09:14)
[2016-07-25 09:16] LABS: INR 2.19 (0.82-1.09); PROTHROMBIN TIME (PATIENT) 24.2 SEC (10.2-13.0)
--- NOTE | 2016-07-25 11:14 | DS ---
Physical Exam: SUBJECTIVE: Patient seen and examined, patient is ambulatory at bedside with the assistance of a walker, patient denies any paresthesia to the lower extremities, pt denies any chest pain or shortness of breath. OBJECTIVE: patient is a 80 y/o male with a past medical history of A-fib, ( Coumadin), HTN, HLD, Colon Ca (s/p resection, chemo, 2012), Chronic Back Pain, Chronic Leg Weakness, GERD. Who presents to the ED with lower lumbar pain, leg weakness and difficulty ambulating. He was admitted to [facility] on 07/01/16 after falling in the bathroom due to leg weakness. Patient reports having increased right-sided sciatica pain with little relief after taking Tylenol ES. Patient reports having difficulty ambulating with his walker secondary to his leg weakness. Patient reports no new falls, since the 07/01/16 fall. Patient reports since having the right hip replacement, he has had recurrent SBOs in which he underwent surgery. Subsequently, he has not been able to go to Rehab for PT. Patient denies bladder or bowel incontinence. Patient denies fever, chills, cough, SOB, CP, AP, N/V/D, constipation, dysuria. ER course was notable for: (1) L-spine xray- severe DJD (2) Trop 0.28 (3) EKG- Afib 68 bpm Vital Signs Period Temp Pulse Resp BP Sys/Hurst Pulse Ox Last 24 Hr 97.6 F-98.7 F 64-80 16-19 118-130/62-77 99-100 PHYSICAL EXAM GENERAL: The patient is awake, alert, and fully oriented, in no acute distress. HEAD: Normal with no signs of trauma. EYES: PERRL, extraocular movements intact, sclera anicteric, conjunctiva clear. No ptosis. ENT: Ears normal, nares patent, oropharynx clear without exudates, moist mucous membranes. NECK: Trachea midline, full range of motion, supple. LUNGS: Breath sounds equal, clear to auscultation bilaterally, no wheezes, no crackles, no accessory muscle use. HEART: Irregular rate and rhythm, S1, S2, 2/6 systolic murmur, rub or gallop. ABDOMEN: Soft, nontender, nondistended, normoactive bowel sounds, no guarding, no rebound, no hepatosplenomegaly, no masses. EXTREMITIES: 2+ pulses, warm, well-perfused, no edema. MS: +right SLR at 45 degress, negative left SLR, paraspinal tenderness noted to L5 and S1 NEUROLOGICAL: Cranial nerves II through XII grossly intact. Normal speech, gait not observed. PSYCH: Normal mood, normal affect. SKIN: Warm, dry, normal turgor, no rashes or lesions noted LABS Laboratory Results - last 24 hr 07/24/16 07/24/16 07/24/16 07:35 16:00 Unknown INR Troponin I 0.03 Urine Color Yellow Cancelled Urine Appearance Clear Cancelled Urine pH 8.5 H D Cancelled Ur Specific [place] 1.015 Cancelled Urine Protein Negative Cancelled Urine Glucose (UA) Negative Cancelled Urine Clinitest Cancelled Urine Ketones Negative Cancelled Urine Blood Trace H Cancelled Urine Nitrite Negative Cancelled Urine Bilirubin Negative Cancelled Urine Ictotest Cancelled Prot Sulfosalicylic Acd Cancelled Urine Urobilinogen 0.2 e.u/dl Cancelled Ur Leukocyte Esterase Negative Cancelled Urine RBC 0-3 Urine WBC 0-3 Ur Epithelial Cells Rare Urine Bacteria 1+ 07/25/16 07:25 INR 2.19 H Troponin I Urine Color Urine Appearance Urine pH Ur Specific [place] Urine Protein Urine Glucose (UA) Urine Clinitest Urine Ketones Urine Blood Urine Nitrite Urine Bilirubin Urine Ictotest Prot Sulfosalicylic Acd Urine Urobilinogen Ur Leukocyte Esterase Urine RBC Urine WBC Ur Epithelial Cells Urine Bacteria IMAGING xray of lumbar spine: DJD xray of chest xray: no acute pathology MRI of lumbar spine: no evidence of compression, deformites, bone marrow edema, scoliotic curvature of lumbarsacral spine, L2-L3 central spinal stenosis, L3-L4 extruded disc extending superior to the L3-L4 disc, compression of the right L3 nerve (as per radiologist, Dr Garcia) HOSPITAL COURSE: Patient was admitted from the emergency department to observation for intractable back pain. Dr Cotton, pain management was consulted and followed, Patient was placed on ultram as per the recommendation of the Dr Cotton. patient reported significant pain relief with ultram. Physical therapy evaluation was completed, patient was noted to have mobility with the assistance of a rolling walker with 1 person and only able to ambulate 5 feet and restorative short term was advised. MRI results was noted. Dr Norma Qureshi, was consulted. MRI results was reviewed with Dr Bundy, advised outpatient follow up with spine surgeon. Patient has a past medical history of paroxysmal Afib. patient remained rate controlled and toprol was continued throughout hospitalization. Patient's INR was as noted to be thereuptic. Patient's 1st troponin was noted to be borderline elevated which downtrended after 2nd and 3rd troponin. 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 Patient has a past medical history of hyperlipidemia and lipitor was continued throughout hospitalization. Loosartan was continued throughout hospitalization, b/p remained at goal. Lasix was continued throughout hospitalization due to patient's history of diastolic congestive heart failure. Patient remained euvolemic. PLAN - discharge to short term rehab - strict follow up with airline operations agent (Dr Vee) and spine surgeon (Dr Bundy) within 2 weeks - return instructions reviewed ie chest pain, shortness of breath, paresthesia to lower extremities, and any changes to bowel or bladder patterns must return to emergency department. Date of Admission:07/23/16 Date of Discharge: 07/25/16 Minutes to complete discharge: 45 Discharge Summary Reason For Visit: ELEVATED TROPNIN/INT BACK PAIN Current Active Problems Ambulatory dysfunction (Acute) DVT prophylaxis (Acute) Elevated troponin (Acute) Intractable low back pain (Acute) Condition: Stable - Home Medications Comprehensive Discharge Medication List: Ambulatory Orders Atorvastatin Ca [Lipitor] 10 mg PO DAILY 11/28/13 Finasteride 5 mg PO HS 11/28/13 Irbesartan [Avapro] 300 mg PO DAILY 11/28/13 Metoprolol Succinate [Toprol Xl] 50 mg PO DAILY 11/28/13 Tamsulosin HCl [Flomax -] 0.4 mg PO DAILY 11/28/13 Folic Acid 1 mg PO DAILY tablet 12/19/13 Furosemide [Lasix -] 40 mg PO DAILY 03/06/14 Tramadol HCl 50 mg PO TID PRN #15 tablet 01/26/15 Acetaminophen [Tylenol] 500 mg PO Q6H 07/01/16 Cholecalciferol (Vitamin D3) [Vitamin D3 -] 1,000 unit PO DAILY 07/01/16 Esomeprazole Magnesium 40 mg PO DAILY 07/01/16 Hypromellose/Pf [Retaine Hpmc 0.3% Eye Drops] 10 ml OP DAILY 07/01/16 Multivit-Min/FA/Lycopen/Lutein [Centrum Silver Tablet] 1 each PO DAILY 07/01/16 Warfarin Sodium [Coumadin] 2.5 mg PO DAILY 07/01/16 This patient is new to me today: No Emergency Visit: Yes ED Registration Date: 07/23/16 Care time: The patient presented to the Emergency Department on the above date and was hospitalized for further evaluation of their emergent condition. Critical Care patient: No - Discharge Referral Referred to [facility] Med P.C.: No
[2016-07-25] MEDS ORDERED: OXYCODONE/APAP 5/325MG COMBO TABLET PO ONE (13:55)
== END 2016-07-25 15:55 | DRG 552 ==
LOC: FER 15:42 → FM/S 19:43
PROVIDERS: ADMIT Internal Medicine; ATTEND Nurse Practitioner Family
DX: M54.16 Radiculopathy, lumbar region (principal); I50.30 Unspecified diastolic (congestive) heart failure; M54.5 Low back pain; I48.91 Unspecified atrial fibrillation; E78.5 Hyperlipidemia, unspecified; K21.9 Gastro-esophageal reflux disease without esophagitis; M16.9 Osteoarthritis of hip, unspecified; N40.0 Benign prostatic hyperplasia without lower urinary tract symptoms; I11.0 Hypertensive heart disease with heart failure; J30.9 Allergic rhinitis, unspecified; Z79.01 Long term (current) use of anticoagulants; Z96.641 Presence of right artificial hip joint; Z85.038 Personal history of other malignant neoplasm of large intestine
CPT/HCPCS: 36415; 71010-TC; 72100-TC; 72148-TC; 80053; 81003; 81015; 82550; 83735; 84484; 85025; 85027; 85610; 87086; 93005; 97116-GP; 97162-PG; 99285-25

== ENCOUNTER 2016-10-06 08:46 | Emergency (ER) | payer OTHER ==
[2016-10-06 09:03] VITALS: BMI 26.9
--- NOTE | 2016-10-06 09:38 | PDOC ---
History of Present Illness <ChandraCamryn talbert - Last Filed: 10/06/16 11:24> - General History Source: Patient Exam Limitations: No Limitations - History of Present Illness Initial Comments: 10/06/16 09:30 80y F hx of htn, HL, afib on coumadin, bph, arhtiritis, presents with complaing of general weakness for approx 2 weeks. Pt states he has been feeling more week than usual, last night he awoke twice feeling very light headed when he sat up, lasting for approx 5 min, he was able to stand up afterwards and walk to the bathroom. Pt does endorse an episode of epigastric discomfort that he attributes to his GERD that he has been frequently feeling, usually at night. There was no afocal weakness/numbnes/tingling. Pt denies ay recent complaints of fever/chills, cough, chest pain, palpitations, sob, headache, neck pain, back pain, vision changes, dysarthria, diarrhea/melena/bpr. Pt does endorse some leg swelling recently but states he was told to stop taking the lasix until he followed up with his PMD durinag a recent hospitalization and hasnt yet restarted it. He deneis any associated pain with it. 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 <Nj Griffith - Last Filed: 10/06/16 11:59> - General Chief Complaint: Blood Pressure Problem Stated Complaint: WEAKNESS Time Seen by Provider: 10/06/16 09:08 Past History <Camryn Artis - Last Filed: 10/06/16 11:24> - Past Medical History Anemia: No Asthma: No Cancer: Yes (Colon) Cardiac Disorders: Yes (A-fib) CVA: No COPD: No CHF: No Dementia: No Diabetes: No GI Disorders: Yes (Colon Ca,GERD) Disorders: No HTN: Yes Hypercholesterolemia: Yes Liver Disease: No Suicide Attempt (Hx): No Seizures: No Thyroid Disease: No - Surgical History Abdominal Surgery: Yes (Colon Resection 10 yrs ago) Appendectomy: No Cardiac Surgery: No Cholecystectomy: No Lung Surgery: No Neurologic Surgery: No Orthopedic Surgery: No - Immunization History Td Vaccination: Yes Immunization Up to Date: (UNSURE) - Psycho/Social/Smoking Cessation Hx Anxiety: No Suicidal Ideation: No Smoking Status: No Smoking History: Never smoked Have you smoked in the past 12 months: No Number of Cigarettes Smoked Daily: 0 Cigars Per Day: 0 Information on smoking cessation initiated: No Hx Alcohol Use: No Drug/Substance Use Hx: No Substance Use Type: Alcohol Hx Substance Use Treatment: No <NachoNj johnson - Last Filed: 10/06/16 11:59> - Past Medical History Allergies/Adverse Reactions: Allergies Allergy/AdvReac Type Severity Reaction Status Date / Time Penicillins Allergy Unknown Verified 07/23/16 15:46 aspirin Allergy Rash Verified 07/23/16 15:46 Home Medications: Ambulatory Orders Atorvastatin Ca [Lipitor] 10 mg PO DAILY 11/28/13 Finasteride 5 mg PO HS 11/28/13 Irbesartan [Avapro] 300 mg PO DAILY 11/28/13 Metoprolol Succinate [Toprol Xl] 50 mg PO DAILY 11/28/13 Tamsulosin HCl [Flomax -] 0.4 mg PO DAILY 11/28/13 Folic Acid 1 mg PO DAILY tablet 12/19/13 Furosemide [Lasix -] 40 mg PO DAILY 03/06/14 Tramadol HCl 50 mg PO TID PRN #15 tablet 01/26/15 Acetaminophen [Tylenol] 500 mg PO Q6H 07/01/16 Cholecalciferol (Vitamin D3) [Vitamin D3 -] 1,000 unit PO DAILY 07/01/16 Esomeprazole Magnesium 40 mg PO DAILY 07/01/16 Multivit-Min/FA/Lycopen/Lutein [Centrum Silver Tablet] 1 each PO DAILY 07/01/16 Warfarin Sodium [Coumadin] 2.5 mg PO DAILY 07/01/16 Brimonidine Tartrate [Alphagan P 0.1% -] 1 drop TID 10/06/16 Review of Systems - Review of Systems Able to Perform ROS?: Yes Comments:: 10/06/16 09:38 Constitutional -+generalized weakness no reported Fever, Chills, HEENT: no reported vision changes, sore throat Respiratory: no reported cough, sob, hemoptysis Cardiac: +leg swelling no reported chest pain, palpitations, light headedness, Abd/GI: no reported abd pain, nausea, vomiting, blood per rectum, melena, diarrhea : no reported dysuria, frequency, discharge Musculskelatal - no reported back pain, joint swelling skin - no reported bruising, erythema, rash neurological: no reported headache, numbness, focal weakness, tingling, ataxia, hematologic: no reported anemia, easy bruising, easy bleeding <NachoTimNj - Last Filed: 10/06/16 11:59> *Physical Exam - Vital Signs Last Vital Signs Temp Pulse Resp BP Pulse Ox 98.2 F 63 16 138/80 98 10/06/16 10:01 10/06/16 10:01 10/06/16 10:01 10/06/16 10:01 10/06/16 10:01 <Camryn Artis - Last Filed: 10/06/16 11:24> - Vital Signs Last Vital Signs Temp Pulse Resp BP Pulse Ox 98.2 F 68 16 148/80 99 10/06/16 08:59 10/06/16 08:59 10/06/16 08:59 10/06/16 08:59 10/06/16 08:59 - Physical Exam Comments: 10/06/16 09:40 GENERAL: The patient is awake, alert, and fully oriented, Nontoxic - in no acute distress. HEAD: Normocephalic, atraumatic. EYES: extraocular movements intact, sclera anicteric, conjunctiva clear. ENT: Normal voice, Moist mucous membranes. NECK: Normal range of motion, supple LUNGS: Breath sounds equal, clear to auscultation bilaterally. No wheezes, no rhonchi, no rales. HEART: Irregularly irregular ABDOMEN: Soft, nontender, normoactive bowel sounds. No guarding, no rebound. No CVA tenderness EXTREMITIES: Normal range of motion, +b/l pitting edema in LE (+1), no calf tenderness, no assymetry NEUROLOGICAL: No facial assymetry, Normal speech, PSYCH: Normal mood, normal affect. SKIN: Warm, Dry, normal turgor, <NachoNj - Last Filed: 10/06/16 11:59> Heart Score/ECG Review - ECG Impressions Comment:: 10/06/16 09:42 Twelve-lead EKG was performed and reviewed by me. Irregularly irregular Rate of [address] changes suggestive of acute ischemia impression: rate controlled afib <Nj Griffith - Last Filed: 10/06/16 11:59> ED Treatment Course - LABORATORY CBC & Chemistry Diagram: 10/06/16 09:13 10/06/16 09:13 - ADDITIONAL ORDERS Additional order review: Laboratory Results 10/06/16 10/06/16 10/06/16 09:56 09:13 09:13 INR Sodium 137 Potassium 4.0 Chloride 101 Carbon Dioxide 31 Anion Gap 5 L BUN 10 D Creatinine 0.6 L Creat Clearance w eGFR > 60 POC Glucometer 128.25648 Random Glucose 97 Calcium 9.4 Magnesium 2.0 Total Bilirubin 0.6 AST 14 L D ALT 19 Alkaline Phosphatase 69 Creatine Kinase 33 L Troponin I 0.02 Total Protein 6.9 Albumin 4.0 Urine Color Straw Urine Appearance Clear Urine pH 8.0 Urine Protein Negative Urine Glucose (UA) Negative Urine Ketones Negative Urine Blood 1+ H Urine Nitrite Negative Urine Bilirubin Negative Urine Urobilinogen Negative Ur Leukocyte Esterase Negative Urine RBC 3 Urine WBC None Urine Mucus Rare 10/06/16 09:13 INR 2.88 H Sodium Potassium Chloride Carbon Dioxide Anion Gap BUN Creatinine Creat Clearance w eGFR POC Glucometer Random Glucose Calcium Magnesium Total Bilirubin AST ALT Alkaline Phosphatase Creatine Kinase Troponin I Total Protein Albumin Urine Color Urine Appearance Urine pH Urine Protein Urine Glucose (UA) Urine Ketones Urine Blood Urine Nitrite Urine Bilirubin Urine Urobilinogen Ur Leukocyte Esterase Urine RBC Urine WBC Urine Mucus 10/06/16 10/06/16 09:56 09:13 RBC 4.17 MCV 100.4 H MCHC 33.5 RDW 13.4 MPV 8.1 Neutrophils % 85.9 H Lymphocytes % 8.3 D Monocytes % 4.9 Eosinophils % 0.4 Basophils % 0.5 POC Glucometer 128.15069 - Medications Given in the ED: ED Medications Discontinued Medications Generic Name Dose Route Start Last Admin Trade Name Vinicius PRN Reason Stop Dose Admin Al Hydroxide/Mg Hydroxide 30 ml 10/06/16 09:42 10/06/16 09:52 Mylanta Suspension - PO 10/06/16 09:43 30 ml ONCE ONE Administration Famotidine/Sodium Chloride 20 50 mls @ 100 mls/hr 10/06/16 09:42 10/06/16 09:52 mg/ Miscellaneous IVPB 10/06/16 10:11 100 mls/hr ONCE ONE Administration <Camryn Artis - Last Filed: 10/06/16 11:24> - LABORATORY CBC & Chemistry Diagram: 10/06/16 09:13 10/06/16 09:13 - RADIOLOGY Radiology Studies Ordered: Category Date Time Status CHEST X-RAY PORTABLE* [RAD] Stat Radiology 10/06/16 09:10 Ordered <Nj Griffith - Last Filed: 10/06/16 11:59> Medical Decision Making - Medical Decision Making 10/06/16 11:15 Contacted [facility] for Dr. Kent. Was informed Dr. Lawson is covering for Dr. Kent via [phone] 10/06/16 11:[address] Lawson <Vielka Artishel - Last Filed: 10/06/16 11:24> - Medical Decision Making 10/06/16 09:43 80-year-old gentleman history of hypertension, hyperlipidemia, BPH, A. fib on Coumadin presenting with complaint of generalized weakness and 2 episodes of lightheadedness as well as episode of epigastric discomfort. The patient's exam was only notable for irregular irregularly heart rate as well as pitting edema lower extremities. Differential for the patient's symptoms includes but is not limited to anemia, metabolic derangements, ACS, UTI, occult pneumonia. Will check CBC, CMP, troponin, mag, UA, chest x-ray We'll give the patient some Pepcid and Maalox 10/06/16 10:31 The patients labs were rewviewed and are negative the pts UA is not suggestive of UTI the pt feels asymptomatic currently will see if his daughter has a walker and will attempt to ambulate the patient pt states he is getting rehab for leg weakness, hx of spinal stenosis and is being followed by spine surgeon will d/w dr. Samano after abmulating the pt 10/06/16 11:57 pt was able ot ambulate with assistance of walker without any further symptoms case dw dr. Lawson, agrees with mangement will drophis metoprolol back down to 50mg from 100 as that may be the cause of his sypmtoms will have pt monitor his BP pt has appt scheduled with Renny on thursday. return precautions were discussed I discussed the physical exam findings, ancillary test results and final diagnoses with the patient. I answered all of the patient's questions. The patient was satisfied with the care received and felt comfortable with the discharge plan and treatment plan. The patient will call their primary care physician within 24 hours to arrange follow-up and will return to the Emergency Department with any new, persistent or worsening symptoms. <Nj Griffith - Last Filed: 10/06/16 11:59> *DC/Admit/Observation/Transfer <Camryn Artis - Last Filed: 10/06/16 11:24> - Discharge Dispostion Admit: No <Nj Griffith - Last Filed: 10/06/16 11:59> Diagnosis at time of Disposition: Lightheaded Hypertension Qualifiers: Hypertension type: essential hypertension Qualified Code(s): I10 - Essential ( primary) hypertension - Discharge Dispostion Disposition: HOME Condition at time of disposition: Improved - Referrals Referrals: Armen Lawson [Non Staff, Medical] - Madhu Vee MD [Staff Physician] - - Patient Instructions Printed Discharge Instructions: DI for High Blood Pressure, How to Monitor Your Blood Pressure at Home Additional Instructions: Return to the emergency department immediately with ANY new, persistent or worsening symptoms. Decrease your Metoprolol from 100mg to 50mg. Keep a log of your blood pressure and follow up with Dr. Lawson as scheduled on thursday. Results were discussed with you. Please make sure your doctor reviews the results of your emergency evaluation. Print Language: KOREAN
[2016-10-06] MEDS ORDERED: MAG HYDROX/AL HYDROX/SIMETH 355 ML ORAL.SUSP PO ONE (09:42)
[2016-10-06] MEDS ORDERED: FAMOTIDINE 20 MG/50 ML IVPB 20 MG in PREMIX 50 IVPB ONE (09:42)
[2016-10-06] MEDS ORDERED: MAG HYDROX/AL HYDROX/SIMETH 30 ML UNIT-DOSE CUP ONE (09:43)
[2016-10-06] MEDS ORDERED: FAMOTIDINE 20 MG/50 ML IVPB 50 ML IVPB ONE (09:44)
[2016-10-06 09:47] LABS: BASOPHIL 0.5 % (0-2.0); EOSINOPHIL 0.4 % (0-4.5); MCH 33.7 pg (25.7-33.7); MCHC 33.5 g/dl (32.0-35.9); MEAN CELL VOLUME 100.4 fl (80-96); MEAN PLT VOLUME 8.1 fl (7.5-11.1); NEUTROPHILS 85.9 % (42.8-82.8); PLATELET COUNT 169 K/MM3 (134-434); RDW 13.4 % (11.9-15.9); WHITE BLOOD COUNT 7.2 K/mm3 (4.0-10.0)
[2016-10-06 09:58] LABS: URINE APPEARANCE CLEAR; URINE BILIRUBIN NEGATIVE (NEGATIVE); URINE BLOOD 1+ (NEGATIVE); URINE COLOR STRAW; URINE GLUCOSE (UA) NEGATIVE (NEGATIVE); URINE KETONE NEGATIVE (NEGATIVE); URINE LEUK ESTERASE NEGATIVE (NEGATIVE); URINE NITRITE NEGATIVE (NEGATIVE); URINE PROTEIN NEGATIVE (NEGATIVE); URINE UROBILINOGEN NEGATIVE mg/dL (0.2-1.0)
[2016-10-06 10:04] LABS: URINE MUCUS RARE; URINE RBC 3 /hpf (0-3)
[2016-10-06 10:10] LABS: ANION GAP 5 (8-16); BILIRUBIN,TOTAL 0.6 mg/dL (0.2-1.0); CALCIUM 9.4 mg/dL (8.5-10.1); CO2 31 mmol/L (21-32); CREATININE 0.6 mg/dL (0.7-1.3); GLUCOSE,RANDOM 97 mg/dL (74-106); SGOT/AST 14 U/L (15-37); SGPT/ALT 19 U/L (12-78); TOT PROT 6.9 g/dl (6.4-8.2)
[2016-10-06 10:12] LABS: ALK PHOS 69 U/L (45-117); CPK 33 IU/L (39-308); INR 2.88 (0.82-1.09); PROTHROMBIN TIME (PATIENT) 32.4 SEC (9.98-11.88); TROPONIN I 0.02 ng/ml (0.00-0.05)
[2016-10-06 12:06] VITALS: BP 164/78; PULSE 64; TEMP 98
--- NOTE | 2016-10-06 12:14 | EKG ---
Test Reason : Blood Pressure : / mmHG Vent. Rate : 068 BPM Atrial Rate : 072 BPM P-R Int : 000 ms QRS Dur : 082 ms QT Int : 388 ms P-R-T Axes : 000 -09 -10 degrees QTc Int : 412 ms ATRIAL FIBRILLATION ABNORMAL ECG WHEN COMPARED WITH ECG OF 23-JUL-2016 17:12, NO SIGNIFICANT CHANGE WAS FOUND Confirmed by ENRIQUE JAIME MD ([id number]) on 10/06/2016 12:14:48 PM Referred By: Confirmed By:ENRIQUE JAIME MD
== END 2016-10-06 12:06 | disposition home or self-care (01) ==
LOC: JER 08:46
PROC: 3E033GC Introduction of Other Therapeutic Substance into Peripheral Vein, Percutaneous Approach (ICD-10-PCS; principal; 2016-10-06)
DX: I10 Essential (primary) hypertension (principal); E78.00 Pure hypercholesterolemia, unspecified; I48.91 Unspecified atrial fibrillation; Z79.01 Long term (current) use of anticoagulants; N40.0 Benign prostatic hyperplasia without lower urinary tract symptoms; M12.9 Arthropathy, unspecified
CPT/HCPCS: 36415; 71010-TC; 80053; 81003; 81015; 83735; 84484; 85025; 85610; 93005; 93010; 96365; 99283-25

== ENCOUNTER 2016-12-20 10:55 | Inpatient (IN) | payer OTHER ==
[2016-12-20 11:10] VITALS: BMI 26.9
--- NOTE | 2016-12-20 11:17 | PDOC ---
History of Present Illness - General Chief Complaint: Pain Stated Complaint: RESTLESS LEG, ACHINESS Time Seen by Provider: 12/20/16 11:10 - History of Present Illness Initial Comments: 12/20/16 12:04 Chief complaint: Weakness History of present illness: Patient states that for approximately 2 weeks both legs have been getting progressively weaker, and he is now unable to ambulate adequately with his walker. When he attempts to ambulate, he feels lightheaded and has the sensation his legs will give out. He has not fallen and he has not blacked out. Review of systems: Admits decreased appetite, decreased interest in food, and decreased fluid intake, although he is eating. He is drinking adequate amounts of water. Admits feeling considerably anxious at times, and his primary physician has recently prescribed Zoloft for this. Initially it seemed to be helping, but despite increasing the dose he does not feel it is effective anymore. He has been taking it since December 05. He admits increasing symptoms of GERD, especially after eating, and is under the care of Dr. Pena, real estate salesperson. His Nexium has been increased but he has not had endoscopy. There is been no vomiting or hematemesis, no diarrhea, melena, or bloody stool. No chest pain, shortness of breath, abdominal pain, nausea, vomiting, diarrhea, visual or focal neurologic symptoms. No dysuria but chronic frequency due to BPH. He urinates 5 times per night, but this is unchanged from baseline Past medical history: Spinal stenosis with prior admission to rehabilitation for similar symptoms of weakness. Atrial fibrillation on warfarin, last INR was 2.5 recently. GERD. Elevated cholesterol. HBP. No prior AK, CVA, or TIA. BPH, elevated cholesterol Social history: Drinks 1 or 2 beers a couple times per week. No tobacco. No nonprescription drugs. Lives alone in [place], cares for himself but has been unable to adequately ambulate or go outdoors. His daughter visits frequently and keeps close watch over him. His is in a custodial. Family history: Reviewed and noncontributory including early coronary artery disease, metabolic disease including diabetes, and cancer. Physical exam: Alert oriented well-developed well-nourished no acute distress cooperative Afebrile, vital signs normal Head atraumatic. PERRLA, fundi benign, ENT clear Neck supple without bruit mass or nodes Lungs clear CV irregularly irregular 64/m. 2/6 systolic ejection murmur left sternal border. Pulses full and symmetric. No JVD or edema. Abdomen soft nontender without mass or organomegaly Extremities no CCE Neurological C2 to 12 intact. No focal sensory or motor deficits. Patient is unable to adequately ambulate using his walker. There is generalized weakness, especially in both lower extremities. Babinski's are down however. Skin clear, no rash, adequate turgor but mucous membranes are somewhat dry Impression: Recent inability to ambulate and care for himself at home. Decreased appetite with dehydration. Plan: Rule out acute coronary syndrome, metabolic abnormalities. Admit for rehabilitation and placement. Past History - Past Medical History Allergies/Adverse Reactions: Allergies Allergy/AdvReac Type Severity Reaction Status Date / Time Penicillins Allergy Unknown Verified 12/20/16 11:06 aspirin Allergy Rash Verified 12/20/16 11:06 Home Medications: Ambulatory Orders Atorvastatin Ca [Lipitor] 10 mg PO DAILY 11/28/13 Finasteride 5 mg PO HS 11/28/13 Irbesartan [Avapro] 300 mg PO DAILY 11/28/13 Metoprolol Succinate [Toprol Xl] 50 mg PO DAILY 11/28/13 Tamsulosin HCl [Flomax -] 0.4 mg PO DAILY 11/28/13 Folic Acid 1 mg PO DAILY tablet 12/19/13 Furosemide [Lasix -] 20 mg PO DAILY 03/06/14 Tramadol HCl 50 mg PO TID PRN #15 tablet 01/26/15 Acetaminophen [Tylenol] 500 mg PO Q6H 07/01/16 Cholecalciferol (Vitamin D3) [Vitamin D3 -] 1,000 unit PO DAILY 07/01/16 Esomeprazole Magnesium 40 mg PO DAILY 07/01/16 Multivit-Min/FA/Lycopen/Lutein [Centrum Silver Tablet] 1 each PO DAILY 07/01/16 Warfarin Sodium [Coumadin] 2.5 mg PO DAILY 07/01/16 Docusate Sodium [Stool Softener] 100 mg PO ASDIR 12/20/16 Light Mineral Oil/Min Oil/Pf [Retaine Mgd Eye Drops] 1 each OU BID 12/20/16 Anemia: No Asthma: No Cancer: Yes (Colon) Cardiac Disorders: Yes (A-fib) CVA: No COPD: No CHF: No Dementia: No Diabetes: No GI Disorders: Yes (Colon Ca,GERD) Disorders: No HTN: Yes Hypercholesterolemia: Yes Liver Disease: No Seizures: No Thyroid Disease: No - Surgical History Abdominal Surgery: Yes (Colon Resection 10 yrs ago) Appendectomy: No Cardiac Surgery: No Cholecystectomy: No Lung Surgery: No Neurologic Surgery: No Orthopedic Surgery: No - Immunization History Td Vaccination: Yes Immunization Up to Date: (UNSURE) - Suicide/Smoking/Psychosocial Hx Smoking Status: No Smoking History: Never smoked Have you smoked in the past 12 months: No Number of Cigarettes Smoked Daily: 0 Cigars Per Day: 0 Hx Alcohol Use: No Drug/Substance Use Hx: No Substance Use Type: Alcohol Hx Substance Use Treatment: No *Physical Exam - Vital Signs Last Vital Signs Temp Pulse Resp BP Pulse Ox 98.3 F 73 18 144/93 100 12/20/16 10:55 12/20/16 10:55 12/20/16 10:55 12/20/16 10:55 12/20/16 10:55 ED Treatment Course - LABORATORY CBC & Chemistry Diagram: 12/20/16 11:30 12/20/16 11:30 Medical Decision Making - Medical Decision Making 12/20/16 12:44 Chest x-ray reviewed: No congestion or acute infiltrates. Lungs appear to be clear and heart shadows normal EKG reviewed: Atrial fibrillation with rate controlled at 63 bpm. Low voltage QRS. Possible septal infarct, age undetermined. Nonspecific ST-T wave changes. Old EKG was reviewed from 10/06/2016. All abnormalities were present at that time. There is no interval change. Laboratories reveal a normal CBC, INR 3.10, sodium 129, chloride 93, otherwise chemistries are without significant abnormalities. Troponin is negative. Urinalysis is clear Patient with unsteadiness of gait, possible mild dehydration, anorexia and decreased appetite, and near syncope. 12/20/16 12:49 Spoke to Shahid, the PA hospitalist. Case discussed. He will admit the patient under Dr. Bro *DC/Admit/Observation/Transfer Diagnosis at time of Disposition: Hyponatremia - Discharge Dispostion Condition at time of disposition: Stable Admit: Yes
[2016-12-20 11:36] LABS: PH,URINE 7.5 (4.5-8); URINE APPEARANCE Clear; URINE BILIRUBIN Negative (NEGATIVE); URINE GLUCOSE (UA) Negative (NEGATIVE); URINE KETONE Negative (NEGATIVE); URINE LEUK ESTERASE Negative (NEGATIVE); URINE NITRITE Negative (NEGATIVE); URINE PROTEIN Negative (NEGATIVE); URINE UROBILINOGEN 0.2 (0.2-1.0)
[2016-12-20 11:37] LABS: URINE BLOOD Trace-intact (NEGATIVE); URINE COLOR AMBER
[2016-12-20 11:55] LABS: BASOPHIL 1.1 % (0-2.0); EOSINOPHIL 0.1 % (0-4.5); MCHC 33.9 g/dl (32.0-35.9); WHITE BLOOD COUNT 9.3 K/mm3 (4.0-10.8)
[2016-12-20 12:00] LABS: MCH 33.6 pg (25.7-33.7); MEAN CELL VOLUME 99.2 fl (80-96); MEAN PLT VOLUME 8.5 fl (7.5-11.1); NEUTROPHILS 85.8 % (42.8-82.8); PLATELET COUNT 221 K/MM3 (134-434); RDW 12.7 % (11.9-15.9)
[2016-12-20 12:10] LABS: ALBUMIN 4.3 g/dl (3.5-5.0); ALK PHOS 55 U/L (32-92); ANION GAP 8 (8-16); BILIRUBIN,TOTAL 0.9 mg/dl (0.2-1.0); CALCIUM 9.1 mg/dl (8.4-10.2); CO2 28 mmol/L (22-28); CPK 47 IU/L (39-308); CREATININE 0.6 mg/dl (0.6-1.3); GLUCOSE,RANDOM 106 mg/dl (74-106); SGOT/AST 26 U/L (10-42); SGPT/ALT 19 U/L (10-40); TOT PROT 6.8 g/dl (6.4-8.3)
[2016-12-20 12:27] LABS: TROPONIN I (DFP) < 0.03 ng/ml (0.03-0.50)
[2016-12-20 12:31] LABS: INR 3.1 (0.82-1.09)
[2016-12-20 12:38] LABS: URINE WBC 0-1 (3-5)
[2016-12-20] MEDS ORDERED: SODIUM CHLORIDE 500 ML IV STA (12:43)
--- NOTE | 2016-12-20 14:07 | HP ---
CHIEF COMPLAINT: "I am having difficulty walking." PCP: Renny ([facility]) HISTORY OF PRESENT ILLNESS: This is a 81-year-old male with past medical history of spinal stenosis, BPH, hypertension, CHF, hyperlipidemia, A. fib on Coumadin, remote colon cancer status post resection who presents today with progressively worsening weakness in bilateral lower extremities. Patient states he has been having difficulty standing from a sitting position and difficulty with transfers. Symptoms started approximately in the middle of September of this year for which she had full evaluation including MRI as well as his stay in [facility]. Patient also reports 20 pound weight loss over the past few months. Patient denies fever, headache, chest pain, shortness of breath, abdominal pain, nausea, vomiting, diarrhea. ER course was notable for: (1) Hyponatremia- 129 (2) INR-3.1 Recent Travel: denies PAST MEDICAL HISTORY: see HPI PAST SURGICAL HISTORY: see HPI Social History: Smoking: denies Alcohol: 2-3 beers daily none in 3 weeks Drugs: denies Family History: Allergies Penicillins Allergy (Unknown, Verified 12/20/16 11:06) aspirin Allergy (Verified 12/20/16 11:06) Rash HOME MEDICATIONS: Home Medications Medication Instructions Recorded Atorvastatin Ca [Lipitor] 10 mg PO DAILY 11/28/13 Finasteride 5 mg PO HS 11/28/13 Irbesartan [Avapro] 300 mg PO DAILY 11/28/13 Metoprolol Succinate [Toprol Xl] 50 mg PO DAILY 11/28/13 Tamsulosin HCl [Flomax -] 0.4 mg PO DAILY 11/28/13 Folic Acid 1 mg PO DAILY tablet 12/19/13 Furosemide [Lasix -] 20 mg PO DAILY 03/06/14 Tramadol HCl 50 mg PO TID PRN #15 tablet 01/26/15 Acetaminophen [Tylenol] 500 mg PO Q6H 07/01/16 Cholecalciferol (Vitamin D3) 1,000 unit PO DAILY 07/01/16 [Vitamin D3 -] Esomeprazole Magnesium 40 mg PO DAILY 07/01/16 Multivit-Min/FA/Lycopen/Lutein 1 each PO DAILY 07/01/16 [Centrum Silver Tablet] Warfarin Sodium [Coumadin] 2.5 mg PO DAILY 07/01/16 Docusate Sodium [Stool Softener] 100 mg PO ASDIR 12/20/16 Light Mineral Oil/Min Oil/Pf 1 each OU BID 12/20/16 [Retaine Mgd Eye Drops] Sertraline HCl [Zoloft] 25 mg PO DAILY 12/20/16 REVIEW OF SYSTEMS CONSTITUTIONAL: Absent: fever, chills, diaphoresis, generalized weakness, malaise, loss of appetite, weight change HEENT: Absent: rhinorrhea, nasal congestion, throat pain, throat swelling, difficulty swallowing, mouth swelling, ear pain, eye pain, visual changes CARDIOVASCULAR: Absent: chest pain, syncope, palpitations, irregular heart rate, lightheadedness , peripheral edema RESPIRATORY: Absent: cough, shortness of breath, dyspnea with exertion, orthopnea, wheezing, stridor, hemoptysis GASTROINTESTINAL: Absent: abdominal pain, abdominal distension, nausea, vomiting, diarrhea, constipation, melena, hematochezia GENITOURINARY: Absent: dysuria, frequency, urgency, hesitancy, hematuria, flank pain, genital pain MUSCULOSKELETAL: Absent: myalgia, arthralgia, joint swelling, back pain, neck pain SKIN: Absent: rash, itching, pallor HEMATOLOGIC/IMMUNOLOGIC: Absent: easy bleeding, easy bruising, lymphadenopathy, frequent infections ENDOCRINE: Present- unexplained weight loss Absent: unexplained weight gain, heat intolerance, cold intolerance NEUROLOGIC: Present- bilateral lower extremity weakness Absent: headache, paresthesias, dizziness, unsteady gait, seizure, mental status changes, bladder or bowel incontinence PSYCHIATRIC: Absent: anxiety, depression, suicidal or homicidal ideation, hallucinations. PHYSICAL EXAMINATION GENERAL: Awake, alert, and fully oriented, in no acute distress. HEAD: Normal with no signs of trauma. EYES: Pupils equal, round and reactive to light, extraocular movements intact, sclera anicteric, conjunctiva clear. No lid lag. EARS, NOSE, THROAT: Ears normal, nares patent, oropharynx clear without exudates. Moist mucous membranes. NECK: Normal range of motion, supple without lymphadenopathy, JVD, or masses. LUNGS: Breath sounds equal, clear to auscultation bilaterally. No wheezes, and no crackles. No accessory muscle use. HEART: Regular rate and rhythm, normal S1 and S2 with 2/6 systolic murmur. No rub or gallop. ABDOMEN: Soft, nontender, not distended, normoactive bowel sounds, no guarding, no rebound, no masses. No hepatomegaly or splenomegaly. MUSCULOSKELETAL: Normal range of motion at all joints. No bony deformities or tenderness. No CVA tenderness. UPPER EXTREMITIES: 2+ pulses, warm, well-perfused. No cyanosis. No clubbing. No peripheral edema. LOWER EXTREMITIES: 2+ pulses, warm, well-perfused. No calf tenderness. No peripheral edema. Venous stasis changes noted on bilateral lower extremities. NEUROLOGICAL: Cranial nerves II-XII intact. Normal speech. Gait not tested. PSYCHIATRIC: Cooperative. Good eye contact. Became tearful during assessment. SKIN: Warm, dry, normal turgor, no rashes or lesions noted, normal capillary refill. ASSESSMENT/PLAN: A: 81-year-old male with extensive medical history with hyponatremia and FTT given 20 kg weight loss over the past 10 months, difficulty in making transfers as well as increased anxiety and depression over the past 3 months. P: Hyponatremia - Na 129 in ED - Gentle hydration given CHF FTT - 20 kg weight loss per patient over past 10 months. 16 kg weight loss based on patient record since June. - Patient with difficulty transferring from sitting to standing position - Dietary consult - PT consult - ?SNF placement supratherapuetic INR - Patient usually takes 2.5 mg of Coumadin every day - Will decrease to 2 mg tonight - recheck INR in the morning Afib - Coumadin 2mg tonight -INR in AM Spinal stenosis - PT consult HTN - Well-controlled - Toprol-XL - Irbesartan - Lasix CHF - Daily weights - Strict I&O - Lasix - Irbesartan HLD - Lipitor BPH - Continue home Flomax and finasteride h/o Colon CA s/p resection F/E/N - NS@50cc/hr PPX - therapeutic on Coumadin Dispo- Will likely require STR Visit type - Emergency Visit Emergency Visit: Yes ED Registration Date: 12/20/16 Care time: The patient presented to the Emergency Department on the above date and was hospitalized for further evaluation of their emergent condition. - New Patient This patient is new to me today: Yes Date on this admission: 12/20/16 - Critical Care Critical Care patient: No
[2016-12-20] MEDS: DOCUSATE SODIUM 100 MG CAPSULE (FP) PO SCH (17:14)
[2016-12-20] MEDS: ACETAMINOPHEN 325 MG TABLET (FP) PO PRN ×2 (17:16→23:27)
[2016-12-20] MEDS: WARFARIN NA 2 MG TABLET (UD) PO SCH (17:35)
[2016-12-20] MEDS ORDERED: WARFARIN NA 2.5 MG TABLET (FP) PO SCH (18:00)
[2016-12-20] MEDS ORDERED: WARFARIN NA 2 MG TABLET (UD) PO SCH (18:00)
[2016-12-20] MEDS ORDERED: MAG HYDROX/AL HYDROX/SIMETH 30 ML UNIT-DOSE CUP PO ONE (20:04)
[2016-12-20] MEDS: FINASTERIDE 5 MG TABLET (FP) PO SCH (21:21)
[2016-12-20] MEDS: PANTOPRAZOLE 40 MG TABLET (FP) PO SCH (21:21)
[2016-12-20] MEDS: SERTRALINE HCL 25 MG TABLET (FP) PO SCH (21:22)
[2016-12-20] MEDS ORDERED: [UNRECOGNIZED DRUG - OTHER] OU SCH (22:00)
[2016-12-21] MEDS ORDERED: MELATONIN 5 MG TABLETS PO ONE (01:16)
[2016-12-21] MEDS ORDERED: MAG HYDROX/AL HYDROX/SIMETH 355 ML ORAL.SUSP PO ONE (07:12)
[2016-12-21 09:04] LABS: BASOPHIL 0.1 % (0-2.0); EOSINOPHIL 0.7 % (0-4.5); MCH 33.7 pg (25.7-33.7); MCHC 33.8 g/dl (32.0-35.9); MEAN CELL VOLUME 99.7 fl (80-96); MEAN PLT VOLUME 8.6 fl (7.5-11.1); NEUTROPHILS 76.2 % (42.8-82.8); PLATELET COUNT 189 K/MM3 (134-434); RDW 12.8 % (11.9-15.9); WHITE BLOOD COUNT 7.3 K/mm3 (4.0-10.8)
[2016-12-21] MEDS ORDERED: LOSARTAN POTASSIUM 100 MG TABLET PO SCH (10:00)
[2016-12-21] MEDS ORDERED: SERTRALINE HCL 25 MG TABLET (FP) PO SCH ×2 (10:00)
[2016-12-21] MEDS ORDERED: PATIENT'S OWN MEDICATION (NON-FORMULARY) (Multivit-Min/Fa/Lycopen/Lutein [Centrum Silver T PO SCH (10:00)
[2016-12-21] MEDS ORDERED: METOPROLOL SUCCINATE 200 MG TAB.SR.24H PO SCH (10:00)
[2016-12-21 10:05] LABS: INR 2.63 (0.82-1.09); PROTHROMBIN TIME (PATIENT) 28.9 SEC (10.2-13.0)
[2016-12-21] MEDS: FOLIC ACID 1 MG TABLET (FP) PO SCH (10:11)
[2016-12-21] MEDS: PANTOPRAZOLE 40 MG TABLET (FP) PO SCH ×2 (10:11→21:08)
[2016-12-21] MEDS: TAMSULOSIN HCL 0.4 MG CAP.ER.24H (FP) PO SCH (10:11)
[2016-12-21] MEDS: FUROSEMIDE 40 MG TABLET (FP) PO SCH (10:11)
[2016-12-21] MEDS: ATORVASTATIN CA 10 MG TABLET (FP) PO SCH (10:11)
[2016-12-21] MEDS: CHOLECALCIFEROL (VITAMIN D3) 1,000 UNIT TABLET (FP) PO SCH (10:11)
[2016-12-21] MEDS: DOCUSATE SODIUM 100 MG CAPSULE (FP) PO SCH (10:11)
[2016-12-21 10:45] LABS: ANION GAP 10 (8-16); CALCIUM 8.9 mg/dl (8.4-10.2); CO2 25 mmol/L (22-28); CREATININE 0.6 mg/dl (0.6-1.3); GLUCOSE,RANDOM 88 mg/dl (74-106)
[2016-12-21] MEDS: ACETAMINOPHEN 325 MG TABLET (FP) PO PRN ×2 (11:39→15:29)
[2016-12-21] MEDS ORDERED: LOSARTAN POTASSIUM 50 MG TABLET (FP) PO SCH ×2 (12:16→12:30)
[2016-12-21] MEDS ORDERED: METOPROLOL SUCCINATE 100 MG TAB.SR.24H (FP) PO SCH ×3 (12:17→12:30)
--- NOTE | 2016-12-21 12:35 | PN ---
Physical Exam: SUBJECTIVE: Patient seen and examined. C/o difficulty sleeping due to leg movement. OBJECTIVE: Vital Signs Period Temp Pulse Resp BP Sys/Hurst Pulse Ox Last 24 Hr 97.5 F-98.7 F 60-80 17-19 100-131/50-75 97-100 GENERAL: Awake, alert, and fully oriented, in no acute distress. HEAD: Normal with no signs of trauma. EYES: Pupils equal, round and reactive to light, extraocular movements intact, sclera anicteric, conjunctiva clear. No lid lag. EARS, NOSE, THROAT: Ears normal, nares patent, oropharynx clear without exudates. Moist mucous membranes. NECK: Normal range of motion, supple without lymphadenopathy, JVD, or masses. LUNGS: Breath sounds equal, clear to auscultation bilaterally. No wheezes, and no crackles. No accessory muscle use. HEART: Regular rate and rhythm, normal S1 and S2 with 2/6 systolic murmur. No rub or gallop. ABDOMEN: Soft, nontender, not distended, normoactive bowel sounds, no guarding, no rebound, no masses. No hepatomegaly or splenomegaly. MUSCULOSKELETAL: Normal range of motion at all joints. No bony deformities or tenderness. No CVA tenderness. UPPER EXTREMITIES: 2+ pulses, warm, well-perfused. No cyanosis. No clubbing. No peripheral edema. LOWER EXTREMITIES: 2+ pulses, warm, well-perfused. No calf tenderness. No peripheral edema. Venous stasis changes noted on bilateral lower extremities. NEUROLOGICAL: Cranial nerves II-XII intact. Normal speech. Gait not tested. SKIN: Warm, dry, normal turgor, no rashes or lesions noted, normal capillary refill. Laboratory Results - last 24 hr 12/21/16 12/21/16 12/21/16 06:00 07:00 07:00 WBC 7.3 RBC 4.27 Hgb 14.4 Hct 42.6 MCV 99.7 H MCH 33.7 MCHC 33.8 RDW 12.8 Plt Count 189 MPV 8.6 Neutrophils % 76.2 Lymphocytes % 14.3 D Monocytes % 8.7 Eosinophils % 0.7 D Basophils % 0.1 PT with INR 28.9 H INR 2.63 H Sodium 132 L Potassium 4.4 Chloride 97 L Carbon Dioxide 25 Anion Gap 10 BUN 10 Creatinine 0.6 Random Glucose 88 Calcium 8.9 Active Medications Generic Name Dose Route Start Last Admin Trade Name Hollandq PRN Reason Stop Dose Admin Acetaminophen 500 mg 12/20/16 15:41 12/21/16 11:39 Tylenol - PO 500 mg Q6H PRN Administration FEVER OR PAIN Al Hydroxide/Mg Hydroxide 30 ml 12/21/16 08:39 Mylanta Oral Suspension - PO Q6H PRN DYSPEPSIA Atorvastatin Calcium 10 mg 12/21/16 10:00 12/21/16 10:11 Lipitor - PO 10 mg DAILY [facility] Administration Cholecalciferol 1,000 unit 12/21/16 10:00 12/21/16 10:11 Vitamin D3 - PO 1,000 unit DAILY [facility] Administration Docusate Sodium 100 mg 12/20/16 15:45 12/21/16 10:11 Colace - PO 100 mg DAILY [facility] Administration Finasteride 5 mg 12/20/16 22:00 12/20/16 21:21 Proscar - PO 5 mg HS [facility] Administration Folic Acid 1 mg 12/21/16 10:00 12/21/16 10:11 Folic Acid - PO 1 mg DAILY [facility] Administration Furosemide 20 mg 12/21/16 10:00 12/21/16 10:11 Lasix - PO 20 mg DAILY [facility] Administration Metoprolol Succinate 50 mg 12/21/16 12:34 Toprol Xl - PO DAILY [facility] Non-Formulary Medication 1 each 12/20/16 22:00 Light Mineral Oil/Min Oil/Pf [Retaine Mgd Eye Drops] OU BID [facility] Non-Formulary Medication 1 each 12/21/16 10:00 Multivit-Min/Fa/Lycopen/Lutein [Centrum Silver Tablet] PO DAILY [facility] Pantoprazole Sodium 40 mg 12/20/16 22:00 12/21/16 10:11 Protonix - PO 40 mg BID [facility] Administration Sertraline HCl 50 mg 12/20/16 22:00 12/20/16 21:22 Zoloft - PO 50 mg HS [facility] Administration Tamsulosin HCl 0.4 mg 12/21/16 10:00 12/21/16 10:11 Flomax - PO 0.4 mg DAILY [facility] Administration Warfarin Sodium 2 mg 12/20/16 18:00 12/20/16 17:35 Coumadin - PO 2 mg DAILY@1800 [facility] Administration ASSESSMENT/PLAN: A: 81-year-old male with extensive medical history with hyponatremia and FTT given 20 kg weight loss over the past 10 months, difficulty in making transfers as well as increased anxiety and depression over the past 3 months. P: Hyponatremia - resolved - daily BMP FTT - 20 kg weight loss per patient over past 10 months. 16 kg weight loss based on patient record since June. - Patient with difficulty transferring from sitting to standing position - Dietary consult - PT consult - ?SNF placement supratherapuetic INR - currently therapeutic - Will resume 2 mg home dose - recheck INR in the morning Afib - Coumadin 2mg tonight -INR in AM Restless leg syndrome - Mirapex HS Spinal stenosis - PT consult HTN - Well-controlled - Toprol-XL - Lasix CHF - Daily weights - Strict I&O - Lasix HLD - Lipitor BPH - Continue home Flomax and finasteride h/o Colon CA s/p resection F/E/N - replete prn - Low Na diet PPX - therapeutic on Coumadin Dispo- Will likely require STR Visit type - Emergency Visit Emergency Visit: Yes ED Registration Date: 12/20/16 Care time: The patient presented to the Emergency Department on the above date and was hospitalized for further evaluation of their emergent condition. - New Patient This patient is new to me today: No - Critical Care Critical Care patient: No
--- NOTE | 2016-12-21 16:45 | EKG ---
Test Reason : Blood Pressure : / mmHG Vent. Rate : 063 BPM Atrial Rate : 038 BPM P-R Int : 000 ms QRS Dur : 074 ms QT Int : 378 ms P-R-T Axes : 000 -06 001 degrees QTc Int : 386 ms ATRIAL FIBRILLATION SEPTAL INFARCT , AGE UNDETERMINED ABNORMAL ECG WHEN COMPARED WITH ECG OF 06-OCT-2016 09:12, NO SIGNIFICANT CHANGE WAS FOUND Confirmed by MONIKA LARA MD ([id number] on 12/21/2016 4:45:18 PM Referred By: RASHEL MARQUEZ Confirmed By:MONIKA LARA MD
[2016-12-21] MEDS: WARFARIN NA 2 MG TABLET (UD) PO SCH (17:08)
[2016-12-21] MEDS: traMADol HCL 50 MG TABLET PO PRN (17:08)
[2016-12-21] MEDS: SERTRALINE HCL 25 MG TABLET (FP) PO SCH (21:08)
[2016-12-21] MEDS: FINASTERIDE 5 MG TABLET (FP) PO SCH (21:08)
[2016-12-21] MEDS: PRAMIPEXOLE DIHYDROCHLORIDE 0.125 MG TABLET PO SCH (21:08)
[2016-12-22] MEDS: traMADol HCL 50 MG TABLET PO PRN (00:57)
[2016-12-22] MEDS: ACETAMINOPHEN 325 MG TABLET (FP) PO PRN (00:57)
[2016-12-22 09:28] LABS: BASOPHIL 0.1 % (0-2.0); EOSINOPHIL 0.9 % (0-4.5); MCH 33.4 pg (25.7-33.7); MCHC 33.6 g/dl (32.0-35.9); MEAN CELL VOLUME 99.6 fl (80-96); MEAN PLT VOLUME 8.7 fl (7.5-11.1); NEUTROPHILS 74.2 % (42.8-82.8); PLATELET COUNT 185 K/MM3 (134-434); RDW 13.1 % (11.9-15.9); WHITE BLOOD COUNT 6.7 K/mm3 (4.0-10.8)
[2016-12-22 09:30] LABS: INR 2.32 (0.82-1.09); PROTHROMBIN TIME (PATIENT) 25.5 SEC (10.2-13.0)
[2016-12-22 09:37] LABS: ANION GAP 7 (8-16); CALCIUM 8.8 mg/dl (8.4-10.2); CO2 26 mmol/L (22-28); CREATININE 0.7 mg/dl (0.6-1.3); GLUCOSE,RANDOM 88 mg/dl (74-106)
[2016-12-22] MEDS: FOLIC ACID 1 MG TABLET (FP) PO SCH (09:37)
[2016-12-22] MEDS: FUROSEMIDE 40 MG TABLET (FP) PO SCH (09:37)
[2016-12-22] MEDS: DOCUSATE SODIUM 100 MG CAPSULE (FP) PO SCH ×3 (09:37→21:35)
[2016-12-22] MEDS: TAMSULOSIN HCL 0.4 MG CAP.ER.24H (FP) PO SCH (09:37)
[2016-12-22] MEDS: ATORVASTATIN CA 10 MG TABLET (FP) PO SCH (09:38)
[2016-12-22] MEDS: PANTOPRAZOLE 40 MG TABLET (FP) PO SCH ×2 (09:38→21:35)
[2016-12-22] MEDS: CHOLECALCIFEROL (VITAMIN D3) 1,000 UNIT TABLET (FP) PO SCH (09:39)
[2016-12-22] MEDS: METOPROLOL SUCCINATE 100 MG TAB.SR.24H (FP) PO SCH (09:40)
[2016-12-22] MEDS ORDERED: ALPRAZolam 0.25 MG TABLET PO PRN (11:27)
[2016-12-22] MEDS: MAG HYDROX/AL HYDROX/SIMETH 30 ML UNIT-DOSE CUP PO PRN (11:36)
--- NOTE | 2016-12-22 12:00 | PN ---
Progress Note (short form) - Note Progress Note: Subjective: The patient was seen and examined at the bedside, he reports epigastric discomfort and anxiety. Discussed lower extremity weakness with Dr. Bundy who states he will not be able to evaluate the patient while he is inpatient. Patient walked 30ft with PT Discussed with patient option of second neurosurgeon opinion, the patient became aggressive stating "I don't understand why I can't see Dr. Bundy. I can' t walk" EKG, trop mylanta xanax for epigast discomfort and anxiety Current Medications Generic Name Dose Route Start Last Admin Trade Name Freq PRN Reason Stop Dose Admin Acetaminophen 650 mg 12/21/16 13:59 12/22/16 00:57 Tylenol - PO 650 mg Q6H PRN Administration FEVER OR PAIN Al Hydroxide/Mg Hydroxide 30 ml 12/21/16 08:39 12/22/16 11:36 Mylanta Oral Suspension - PO 30 ml Q6H PRN Administration DYSPEPSIA Alprazolam 0.25 mg 12/22/16 11:27 12/22/16 12:02 Xanax - PO 0.25 mg ONCE PRN Administration Atorvastatin Calcium 10 mg 12/21/16 10:00 12/22/16 09:38 Lipitor - PO 10 mg DAILY [facility] Administration Cholecalciferol 1,000 unit 12/21/16 10:00 12/22/16 09:39 Vitamin D3 - PO 1,000 unit DAILY [facility] Administration Docusate Sodium 100 mg 12/20/16 15:45 12/22/16 09:37 Colace - PO 100 mg DAILY [facility] Administration Finasteride 5 mg 12/20/16 22:00 12/21/16 21:08 Proscar - PO 5 mg HS [facility] Administration Folic Acid 1 mg 12/21/16 10:00 12/22/16 09:37 Folic Acid - PO 1 mg DAILY [facility] Administration Furosemide 20 mg 12/21/16 10:00 12/22/16 09:37 Lasix - PO 20 mg DAILY [facility] Administration Metoprolol Succinate 50 mg 12/21/16 12:34 12/22/16 09:40 Toprol Xl - PO 50 mg DAILY [facility] Administration Non-Formulary Medication 1 each 12/20/16 22:00 Light Mineral Oil/Min Oil/Pf [Retaine Mgd Eye Drops] OU BID [facility] Non-Formulary Medication 1 each 12/21/16 10:00 Multivit-Min/Fa/Lycopen/Lutein [Centrum Silver Tablet] PO DAILY [facility] Pantoprazole Sodium 40 mg 12/20/16 22:00 12/22/16 09:38 Protonix - PO 40 mg BID [facility] Administration Pramipexole Dihydrochloride 0.125 mg 12/21/16 22:00 12/21/16 21:08 Mirapex - PO 0.125 mg HS [facility] Administration Sertraline HCl 50 mg 12/20/16 22:00 12/21/16 21:08 Zoloft - PO 50 mg HS [facility] Administration Tamsulosin HCl 0.4 mg 12/21/16 10:00 12/22/16 09:37 Flomax - PO 0.4 mg DAILY [facility] Administration Tramadol HCl 50 mg 12/21/16 17:03 12/22/16 00:57 Ultram - PO 50 mg Q6H PRN Administration PAIN Warfarin Sodium 2 mg 12/20/16 18:00 12/21/16 17:08 Coumadin - PO 2 mg DAILY@1800 [facility] Administration Objective: Vital Signs Period Temp Pulse Resp BP Sys/Hurst Pulse Ox Last 24 Hr 98.2 F-98.5 F 72-73 19-19 114-137/59-65 98-100 Physical Exam: General: NAD, A&Ox3 Lungs: CTA bilaterally Heart: Irregular, S1S2 Abd: Soft, non-tender, non-distended. Normoactive bowel sounds Ext: Warm, well-perfused. 2+ DP/PT bilaterally Neuro: CN 2-12 intact CBCD WBC 6.7 K/mm3 (4.0-10.8) 12/22/16 07:23 RBC 4.17 M/mm3 (4.00-5.60) 12/22/16 07:23 Hgb 13.9 GM/dl (11.7-16.9) 12/22/16 07:23 Hct 41.5 % (35.4-49) 12/22/16 07:23 MCV 99.6 fl (80-96) H 12/22/16 07:23 MCHC 33.6 g/dl (32.0-35.9) 12/22/16 07:23 RDW 13.1 % (11.9-15.9) 12/22/16 07:23 Plt Count 185 K/MM3 (134-434) 12/22/16 07:23 MPV 8.7 fl (7.5-11.1) 12/22/16 07:23 CMP Sodium 131 mmol/L (136-145) L 12/22/16 07:23 Potassium 3.8 mmol/L (3.5-5.1) 12/22/16 07:23 Chloride 98 mmol/L (98-107) 12/22/16 07:23 Carbon Dioxide 26 mmol/L (22-28) 12/22/16 07:23 Anion Gap 7 (8-16) L 12/22/16 07:23 BUN 10 mg/dl (7-18) 12/22/16 07:23 Creatinine 0.7 mg/dl (0.6-1.3) 12/22/16 07:23 Creat Clearance w eGFR > 60 (>60) 12/20/16 11:30 Random Glucose 88 mg/dl (74-106) 12/22/16 07:23 Calcium 8.8 mg/dl (8.4-10.2) 12/22/16 07:23 Total Bilirubin 0.9 mg/dl (0.2-1.0) 12/20/16 11:30 AST 26 U/L (10-42) D 12/20/16 11:30 ALT 19 U/L (10-40) D 12/20/16 11:30 Alkaline Phosphatase 55 U/L (32-92) 12/20/16 11:30 Total Protein 6.8 g/dl (6.4-8.3) 12/20/16 11:30 Albumin 4.3 g/dl (3.5-5.0) 12/20/16 11:30 CARDIAC ENZYMES Creatine Kinase 47 IU/L (39-308) 12/20/16 11:30 Troponin I < 0.03 ng/ml (0.03-0.50) L 12/20/16 11:30 Assessment: This is a 81 year old male with PMHx of spinal stenosis, BPH, hypertension, CHF, hyperlipidemia, A. fib on Coumadin, remote colon cancer status post resection who presents today with progressively worsening weakness in bilateral lower extremities. Plan: 1) Worsening lower extremity weakness - MRI from 07/[address] Chen - Further imaging request per Dr. Chen. F/u MRI thoracic and cervical spine - Xanax ordered for 30 min prior to scan - Walked 30 ft with PT - F/u consult 2) Hyponatremia: - Slightly worse today - Continue to monitor - F/u osmos and urine sodium 3) A.fib - Continue Coumadin, INR therapeutic - Continue Toprol XL for rate control 4) Restless leg syndrome - Continue Mirapex 5) CHF - Continue Lasix 6) BPH - Continue Proscar - Continue Flomax 7) F/E/N: - Monitor electrolytes - Sodium controlled diet 8) Prophylaxis: - On Coumadin 9) Dispo: - Once condition improves CODE: STATUS: FULL CODE Visit type - Emergency Visit Emergency Visit: Yes ED Registration Date: 12/20/16 Care time: The patient presented to the Emergency Department on the above date and was hospitalized for further evaluation of their emergent condition. - New Patient This patient is new to me today: Yes Date on this admission: 12/22/16 - Critical Care Critical Care patient: No
[2016-12-22] MEDS: POLYETHYLENE GLYCOL 3350 119 GM BTL PO SCH (12:32)
[2016-12-22 14:45] LABS: CPK 41 IU/L (39-308)
[2016-12-22 15:06] LABS: TROPONIN I (DFP) < 0.03 ng/ml (0.03-0.50)
[2016-12-22] MEDS ORDERED: ALPRAZolam 0.25 MG TABLET PO ONE ×2 (15:15→20:06)
[2016-12-22] MEDS: WARFARIN NA 2 MG TABLET (UD) PO SCH (18:46)
--- NOTE | 2016-12-22 21:17 | CONSULT ---
Consult - text type - Consultation Consultation Note: Asked to see this pleasant 81 year old male who has a chief complaint of leg weakness which is impairing his ability to arise from a seated position without using his hands. He has undergone Right hip replacement and describes Left knee "bone on bone" irritation. He has a remote history of colon cancer, but has been told that he is disease free for many years. His recent gait difficulties are also associated with and compounded by anxiety. Due to his history of cancer and gait difficulty, I obtained screening radiographs of the entire spine. These did not show any obvious Pathologic fractures. He does describe spasticity in his lower extremities and loss of fine motor skills in his hands. I feel that Cervical and Thoracic MRI are the appropriate modalities to evaluate these regions and they have been ordered. Lumbar MRI from July 2016 demonstrates Lumbar degenerative scoliosis with stenosis and a disc herniation which has migrated into the Lateral recess at L3 and lies just medial to the Right L3 pedicle. I had a long discussion with the patient and his daughter about his condition and the potential treatment options. Due to his age and care responsibilities for his , he greatly prefers a minimally invasive and least risky treatment option. I agreed to return tomorrow to discuss the MRI findings and potential treatment strategies in detail. All questions were answered. I spent 45 minutes with them, the majority of time in counseling.
[2016-12-22] MEDS: FINASTERIDE 5 MG TABLET (FP) PO SCH (21:35)
[2016-12-22] MEDS: SERTRALINE HCL 25 MG TABLET (FP) PO SCH (21:35)
[2016-12-22] MEDS: PRAMIPEXOLE DIHYDROCHLORIDE 0.125 MG TABLET PO SCH (21:35)
[2016-12-23] MEDS: DOCUSATE SODIUM 100 MG CAPSULE (FP) PO SCH ×3 (05:51→21:48)
[2016-12-23 08:00] LABS: MCH 33.8 pg (25.7-33.7); MEAN CELL VOLUME 99.4 fl (80-96); MEAN PLT VOLUME 8.3 fl (7.5-11.1); PLATELET COUNT 189 K/MM3 (134-434); RDW 12.7 % (11.9-15.9); WHITE BLOOD COUNT 7.3 K/mm3 (4.0-10.8)
[2016-12-23 08:16] LABS: INR 3.03 (0.82-1.09); PROTHROMBIN TIME (PATIENT) 33.2 SEC (10.2-13.0)
[2016-12-23] MEDS: TAMSULOSIN HCL 0.4 MG CAP.ER.24H (FP) PO SCH (09:11)
[2016-12-23] MEDS: MULTIVITAMINS THER W-MINERALS COMBO TABLET (FP) PO SCH (09:11)
[2016-12-23] MEDS: FOLIC ACID 1 MG TABLET (FP) PO SCH (09:11)
[2016-12-23] MEDS: ATORVASTATIN CA 10 MG TABLET (FP) PO SCH (09:11)
[2016-12-23] MEDS: FUROSEMIDE 40 MG TABLET (FP) PO SCH (09:12)
[2016-12-23] MEDS: PANTOPRAZOLE 40 MG TABLET (FP) PO SCH ×2 (09:12→21:49)
[2016-12-23] MEDS: METOPROLOL SUCCINATE 100 MG TAB.SR.24H (FP) PO SCH (09:13)
[2016-12-23] MEDS: POLYETHYLENE GLYCOL 3350 119 GM BTL PO SCH (09:13)
[2016-12-23] MEDS: CHOLECALCIFEROL (VITAMIN D3) 1,000 UNIT TABLET (FP) PO SCH (09:42)
[2016-12-23 09:44] LABS: ANION GAP 8 (8-16); CO2 26 mmol/L (22-28); CREATININE 0.7 mg/dl (0.6-1.3); GLUCOSE,RANDOM 92 mg/dl (74-106)
--- NOTE | 2016-12-23 10:02 | PN ---
Physical Exam: SUBJECTIVE: Patient seen and examined. Reports that he was able to walk to the bathroom and out to the nursing station. Denies pain in his back. Reports pain in his legs at times due to arthritis but none presently. States that he is feeling anxious regarding the MRI to be done today. OBJECTIVE: Vital Signs - 24 hr 3 12/22/16 12/22/16 12/22/16 14:30 19:00 20:59 Temperature 97.7 F 98.0 F Pulse Rate 64 65 Respiratory 18 18 20 Rate Blood Pressure 110/51 113/71 3 12/23/16 12/23/16 03:00 06:00 Temperature 98.0 F Pulse Rate 66 Respiratory 20 18 Rate Blood Pressure 130/67 GENERAL: The patient is awake, alert, and fully oriented, in no acute distress. HEAD: Normal with no signs of trauma. EYES: PERRL, extraocular movements intact, sclera anicteric, conjunctiva clear. No ptosis. ENT: Ears normal, nares patent, oropharynx clear without exudates, moist mucous membranes. NECK: Trachea midline, full range of motion, supple. LUNGS: Breath sounds equal, clear to auscultation bilaterally, no wheezes, no crackles, no accessory muscle use. HEART: Regular rate and rhythm, S1, S2 without murmur, rub or gallop. ABDOMEN: Soft, nontender, nondistended, normoactive bowel sounds, no guarding, no rebound, no hepatosplenomegaly, no masses. EXTREMITIES: 2+ pulses, warm, well-perfused, no edema. NEUROLOGICAL: Cranial nerves II through XII grossly intact. Normal speech, gait not observed. PSYCH: Normal mood, normal affect. SKIN: Warm, dry, normal turgor, no rashes or lesions noted Laboratory Results - last 24 hr 3 12/22/16 12/22/16 12/23/16 07:23 11:31 07:20 WBC 7.3 RBC 4.25 Hgb 14.3 Hct 42.2 MCV 99.4 H MCH 33.8 H MCHC 34.0 RDW 12.7 Plt Count 189 MPV 8.3 PT with INR INR Sodium 131 L Potassium 3.8 Chloride 98 Carbon Dioxide 26 Anion Gap 7 L BUN 10 Creatinine 0.7 Random Glucose 88 Calcium 8.8 Creatine Kinase 41 Cancelled Troponin I < 0.03 L Cancelled 3 12/23/16 12/23/16 07:20 07:30 WBC RBC Hgb Hct MCV MCH MCHC RDW Plt Count MPV PT with INR 33.2 H INR 3.03 H D Sodium 134 L Potassium 3.9 Chloride 100 Carbon Dioxide 26 Anion Gap 8 BUN 11 Creatinine 0.7 Random Glucose 92 Calcium 9.0 Creatine Kinase Troponin I Active Medications 3 Generic Name Dose Route Start Last Admin Trade Name Freq PRN Reason Stop Dose Admin Acetaminophen 650 mg 12/21/16 13:59 12/22/16 00:57 Tylenol - PO 650 mg Q6H PRN Administration FEVER OR PAIN Al Hydroxide/Mg Hydroxide 30 ml 12/21/16 08:39 12/22/16 11:36 Mylanta Oral Suspension - PO 30 ml Q6H PRN Administration DYSPEPSIA Atorvastatin Calcium 10 mg 12/21/16 10:00 12/23/16 09:11 Lipitor - PO 10 mg DAILY [facility] Administration Cholecalciferol 1,000 unit 12/21/16 10:00 12/23/16 09:42 Vitamin D3 - PO 1,000 unit DAILY [facility] Administration Docusate Sodium 100 mg 12/22/16 14:00 12/23/16 05:51 Colace - PO Not Given TID [facility] Finasteride 5 mg 12/20/16 22:00 12/22/16 21:35 Proscar - PO 5 mg HS [facility] Administration Folic Acid 1 mg 12/21/16 10:00 12/23/16 09:11 Folic Acid - PO 1 mg DAILY [facility] Administration Furosemide 20 mg 12/21/16 10:00 12/23/16 09:12 Lasix - PO 20 mg DAILY [facility] Administration Metoprolol Succinate 50 mg 12/21/16 12:34 12/23/16 09:13 Toprol Xl - PO 50 mg DAILY [facility] Administration Multivitamins/Minerals 1 each 12/23/16 10:00 12/23/16 09:11 Theragran-M PO 1 each DAILY [facility] Administration Non-Formulary Medication 1 each 12/20/16 22:00 Light Mineral Oil/Min Oil/Pf [Retaine Mgd Eye Drops] OU BID [facility] Pantoprazole Sodium 40 mg 12/20/16 22:00 12/23/16 09:12 Protonix - PO 40 mg BID [facility] Administration Polyethylene Glycol 17 gm 12/22/16 12:30 12/23/16 09:13 Miralax (For Daily Use) - PO Not Given DAILY [facility] Pramipexole Dihydrochloride 0.125 mg 12/21/16 22:00 12/22/16 21:35 Mirapex - PO 0.125 mg HS [facility] Administration Sertraline HCl 50 mg 12/20/16 22:00 12/22/16 21:35 Zoloft - PO 50 mg HS [facility] Administration Tamsulosin HCl 0.4 mg 12/21/16 10:00 12/23/16 09:11 Flomax - PO 0.4 mg DAILY [facility] Administration Tramadol HCl 50 mg 12/21/16 17:03 12/22/16 00:57 Ultram - PO 50 mg Q6H PRN Administration PAIN Warfarin Sodium 2 mg 12/20/16 18:00 12/22/16 18:46 Coumadin - PO 2 mg DAILY@1800 [facility] Administration ASSESSMENT/PLAN: 81yM with PMHx of spinal stenosis, BPH, hypertension, CHF, hyperlipidemia, A. fib on Coumadin, remote colon cancer status post resection who presented to the ED with progressively worsening weakness in bilateral lower extremities. Plan: Worsening lower extremity weakness - MRI from 07/[address] Chen - Further imaging request per Dr. Chen. F/u MRI thoracic and cervical spine, to be done today - Xanax ordered for 30 min prior to scan Hyponatremia: - Improved today - Continue to monitor - F/u osmos and urine sodium, still pending A.fib - Continue Coumadin, INR 3.03, on 2mg instead of home dose 2.5, cont same and monitor INR - Continue Toprol XL for rate control Restless leg syndrome - Pt reports improvement with Mirapex, cont same CHF - appears euvolemic continue home Lasix BPH - Continue Proscar - Continue Flomax Anxiety - cont home zoloft - xanax PRN F/E/N: - Monitor electrolytes - Sodium controlled diet DVT Prophylaxis: - On Coumadin Dispo: SNF vs home with Home care once condition improves CODE STATUS: FULL CODE Visit type - Emergency Visit Emergency Visit: Yes ED Registration Date: 12/20/16 Care time: The patient presented to the Emergency Department on the above date and was hospitalized for further evaluation of their emergent condition. - New Patient This patient is new to me today: Yes Date on this admission: 12/23/16 - Critical Care Critical Care patient: No
[2016-12-23] MEDS: MAG HYDROX/AL HYDROX/SIMETH 30 ML UNIT-DOSE CUP PO PRN (12:24)
[2016-12-23] MEDS: traMADol HCL 50 MG TABLET PO PRN (12:35)
[2016-12-23] MEDS ORDERED: ALPRAZolam 0.25 MG TABLET PO ONE (12:57)
[2016-12-23 15:41] LABS: OSMOLALITY,SERUM 276 mosm/kg (278-305)
--- NOTE | 2016-12-23 21:40 | PN ---
Progress Note (short form) - Note Progress Note: We held another long discussion with the patient and his daughter about his condition and the potential treatment options. I spent another 45 minutes with them, the majority of time in counseling. Scott Manuel is a 81 year old male who has a chief complaint of leg weakness which is impairing his ability to arise from a seated position without using his hands. He has undergone Right hip replacement and describes Left knee "bone on bone" irritation. He has a remote history of colon cancer, but has been told that he is disease free for many years. His recent gait difficulties are also associated with and compounded by anxiety. Due to his history of cancer and gait difficulty, I obtained screening radiographs of the entire spine. These did not show any obvious Pathologic fractures. He does describe spasticity in his lower extremities and loss of fine motor skills in his hands. I feel that Cervical and Thoracic MRI are the appropriate modalities to evaluate these regions and they have been ordered. Lumbar MRI from July 2016 demonstrates Lumbar degenerative scoliosis with stenosis and a disc herniation which has migrated into the Lateral recess at L3 and lies just medial to the Right L3 pedicle. 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 This is particularly aggravated between C2 and C5 where hypertrophic ligamentum flavum significantly contribute to the spinal cord compression. MRI Thoracic demonstrates multiple levels of spondylosis with some deformation of the Thoracic spinal cord, however, this is not as severe as that in the Cervical spine. I had a long discussion with the patient and daughter concerning the risks, benefits and alternatives to cervical decompression and stabilization. I described focal procedures as well as those which would address multiple levels. I discussed anterior, posterior and combined approaches in great detail. Due to his age and care responsibilities for his , he greatly prefers a minimally invasive and least risky treatment option. I feel that the best course of action would be a posterior C2-5 decompression and stabilization with lateral mass screws performed in one sitting. I explained that the risks included, but were not limited to: , coma, paralysis, bleeding, infection, CSF leakage possibly requiring spinal drainage or additional surgery, instrumentation migration/malfunction/malposition and failure to improve. I offered him the option of seeking another opinion or another surgeon. All questions were answered. Informed consent was obtained. I explained that he would need medical clearance prior to proceeding. The patient verbalizes an understanding of this information and asked intelligent questions. The patient will contact me with his decision regarding treatment preferences.
[2016-12-23] MEDS ORDERED: PT OWN MED DRAWER 7, Y5N ONE (21:47)
[2016-12-23] MEDS: SERTRALINE HCL 25 MG TABLET (FP) PO SCH (21:49)
[2016-12-23] MEDS: FINASTERIDE 5 MG TABLET (FP) PO SCH (21:49)
[2016-12-23] MEDS: PRAMIPEXOLE DIHYDROCHLORIDE 0.125 MG TABLET PO SCH (21:49)
--- NOTE | 2016-12-23 23:01 | EKG ---
Test Reason : Blood Pressure : / mmHG Vent. Rate : 058 BPM Atrial Rate : 066 BPM P-R Int : 000 ms QRS Dur : 080 ms QT Int : 376 ms P-R-T Axes : 000 -23 -18 degrees QTc Int : 369 ms ATRIAL FIBRILLATION WITH SLOW VENTRICULAR RESPONSE ABNORMAL ECG WHEN COMPARED WITH ECG OF 20-DEC-2016 11:39, NO SIGNIFICANT CHANGE WAS FOUND REPEAT EKG IF CLINICALLY INDICATED BASELINE ARTIFACT Confirmed by NARA ZAPIEN MD ([id number]) on 12/23/2016 11:01:29 PM Referred By: DARRELL WOODRUFF Confirmed By:NARA ZAPIEN MD
--- NOTE | 2016-12-24 08:21 | PN ---
Physical Exam: SUBJECTIVE: Patient seen and examined. Pt reports reflux symptoms this morning. Otherwise feeling ok. Ambulated with PT yesterday and ambulated to BR by himself. OBJECTIVE: Vital Signs - 24 hr 3 12/23/16 12/23/16 12/24/16 14:46 22:00 06:00 Temperature 98.1 F 98.0 F 97.8 F Pulse Rate 68 56 L 60 Respiratory 18 18 19 Rate Blood Pressure 106/60 105/54 138/63 O2 Sat by Pulse 99 100 100 Oximetry (%) GENERAL: The patient is awake, alert, and fully oriented, in no acute distress. HEAD: Normal with no signs of trauma. EYES: PERRL, extraocular movements intact, sclera anicteric, conjunctiva clear. No ptosis. ENT: Ears normal, nares patent, oropharynx clear without exudates, moist mucous membranes. NECK: Trachea midline, full range of motion, supple. LUNGS: Breath sounds equal, clear to auscultation bilaterally, no wheezes, no crackles, no accessory muscle use. HEART: Regular rate and rhythm, S1, S2 without murmur, rub or gallop. ABDOMEN: Soft, nontender, nondistended, normoactive bowel sounds, no guarding, no rebound, no hepatosplenomegaly, no masses. EXTREMITIES: 2+ pulses, warm, well-perfused, no edema. NEUROLOGICAL: Cranial nerves II through XII grossly intact. Normal speech, gait not observed. PSYCH: Normal mood, normal affect. SKIN: Warm, dry, normal turgor, no rashes or lesions noted Laboratory Results - last 24 hr 3 12/24/16 12/24/16 12/24/16 08:00 08:00 08:00 WBC 7.8 RBC 4.18 Hgb 14.1 Hct 41.4 MCV 98.9 H MCH 33.6 MCHC 34.0 RDW 13.2 Plt Count 176 MPV 8.4 Neutrophils % 76.8 Lymphocytes % 13.7 Monocytes % 8.4 Eosinophils % 1.0 Basophils % 0.1 PT with INR 32.5 H INR 2.96 H Sodium 130 L Potassium 3.9 Chloride 95 L Carbon Dioxide 28 Anion Gap 7 L BUN 13 Creatinine 0.6 Random Glucose 89 Calcium 8.8 Phosphorus 2.8 Magnesium 2.0 Active Medications 3 Generic Name Dose Route Start Last Admin Trade Name Freq PRN Reason Stop Dose Admin Acetaminophen 650 mg 12/21/16 13:59 12/22/16 00:57 Tylenol - PO 650 mg Q6H PRN Administration FEVER OR PAIN Al Hydroxide/Mg Hydroxide 30 ml 12/21/16 08:39 12/23/16 12:24 Mylanta Oral Suspension - PO 30 ml Q6H PRN Administration DYSPEPSIA Alprazolam 0.25 mg 12/23/16 10:00 Xanax - PO BID PRN ANXIETY Atorvastatin Calcium 10 mg 12/21/16 10:00 12/23/16 09:11 Lipitor - PO 10 mg DAILY K[facility] Administration Cholecalciferol 1,000 unit 12/21/16 10:00 12/23/16 09:42 Vitamin D3 - PO 1,000 unit DAILY [facility] Administration Docusate Sodium 100 mg 12/22/16 14:00 12/23/16 21:48 Colace - PO 100 mg TID K[facility] Administration Finasteride 5 mg 12/20/16 22:00 12/23/16 21:49 Proscar - PO 5 mg HS [facility] Administration Folic Acid 1 mg 12/21/16 10:00 12/23/16 09:11 Folic Acid - PO 1 mg DAILY [facility] Administration Furosemide 20 mg 12/21/16 10:00 12/23/16 09:12 Lasix - PO 20 mg DAILY [facility] Administration Metoprolol Succinate 50 mg 12/21/16 12:34 12/23/16 09:13 Toprol Xl - PO 50 mg DAILY [facility] Administration Multivitamins/Minerals 1 each 12/23/16 10:00 12/23/16 09:11 Theragran-M PO 1 each DAILY [facility] Administration Non-Formulary Medication 1 each 12/20/16 22:00 Light Mineral Oil/Min Oil/Pf [Retaine Mgd Eye Drops] OU BID [facility] Pantoprazole Sodium 40 mg 12/20/16 22:00 12/23/16 21:49 Protonix - PO 40 mg BID [facility] Administration Polyethylene Glycol 17 gm 12/22/16 12:30 12/23/16 09:13 Miralax (For Daily Use) - PO Not Given DAILY [facility] Pramipexole Dihydrochloride 0.125 mg 12/21/16 22:00 12/23/16 21:49 Mirapex - PO 0.125 mg HS [facility] Administration Sertraline HCl 50 mg 12/20/16 22:00 12/23/16 21:49 Zoloft - PO 50 mg HS [facility] Administration Tamsulosin HCl 0.4 mg 12/21/16 10:00 12/23/16 09:11 Flomax - PO 0.4 mg DAILY [facility] Administration Tramadol HCl 50 mg 12/21/16 17:03 12/23/16 12:35 Ultram - PO 50 mg Q6H PRN Administration PAIN Warfarin Sodium 2 mg 12/20/16 18:00 12/22/16 18:46 Coumadin - PO 2 mg DAILY@1800 [facility] Administration ASSESSMENT/PLAN: 81yM with PMHx of spinal stenosis, BPH, hypertension, CHF, hyperlipidemia, A. fib on Coumadin, remote colon cancer status post resection who presented to the ED with progressively worsening weakness in bilateral lower extremities. Plan: Worsening lower extremity weakness - MRI findings reviewed with pt by Dr Del Valle, official read still pending - Dr Del Valle recommending cervical decompression and fusion but pt would like second opinion and is not open to immediate surgical intervention. - pt likely will need rehab again Hyponatremia: - Improved yesterday, labs today again with sodium 130, will repeat - Continue to monitor - urine and serum osmo slightly low, urine sodium WNL, but sodium almost corrected at time sample obtained. - ? due to malnutrition vs zoloft, pt states he started zoloft 3 weeks ago and was helping with anxiety symptoms, will hold zoloft - will obtain renal consult, DW renal, recommend fluid restriction 1200mL GERD - cont protonix BID - maalox PRN - pt took his own tums this am. 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 A.fib - Continue Coumadin, INR 2.9 - Continue Toprol XL for rate control Restless leg syndrome - Pt reports improvement with Mirapex, cont same CHF - appears euvolemic continue home Lasix BPH - Continue Proscar - Continue Flomax Anxiety - hold home zoloft for now due to hyponatremia - xanax PRN - psychiatry input for alternative to zoloft F/E/N: - Monitor electrolytes - Sodium controlled diet DVT Prophylaxis: - On Coumadin Dispo: SNF vs home with Home care once condition improves CODE STATUS: FULL CODE Visit type - Emergency Visit Emergency Visit: Yes ED Registration Date: 12/20/16 Care time: The patient presented to the Emergency Department on the above date and was hospitalized for further evaluation of their emergent condition. - New Patient This patient is new to me today: No - Critical Care Critical Care patient: No - Discharge Referral Referred to [facility] Med P.C.: No
[2016-12-24 08:43] LABS: BASOPHIL 0.1 % (0-2.0); MCH 33.6 pg (25.7-33.7); MEAN CELL VOLUME 98.9 fl (80-96); MEAN PLT VOLUME 8.4 fl (7.5-11.1); NEUTROPHILS 76.8 % (42.8-82.8); PLATELET COUNT 176 K/MM3 (134-434); RDW 13.2 % (11.9-15.9); WHITE BLOOD COUNT 7.8 K/mm3 (4.0-10.8)
[2016-12-24 09:00] LABS: ANION GAP 7 (8-16); CALCIUM 8.8 mg/dl (8.4-10.2); CO2 28 mmol/L (22-28); CREATININE 0.6 mg/dl (0.6-1.3); GLUCOSE,RANDOM 89 mg/dl (74-106); PHOSPHOROUS 2.8 mg/dl (2.5-4.6)
[2016-12-24] MEDS ORDERED: PT OWN MED DRAWER 7, Y5N ONE ×2 (09:34→20:34)
[2016-12-24 09:59] LABS: INR 2.96 (0.82-1.09); PROTHROMBIN TIME (PATIENT) 32.5 SEC (10.2-13.0)
[2016-12-24] MEDS: FUROSEMIDE 40 MG TABLET (FP) PO SCH (10:10)
[2016-12-24] MEDS: FOLIC ACID 1 MG TABLET (FP) PO SCH (10:10)
[2016-12-24] MEDS: TAMSULOSIN HCL 0.4 MG CAP.ER.24H (FP) PO SCH (10:10)
[2016-12-24] MEDS: MULTIVITAMINS THER W-MINERALS COMBO TABLET (FP) PO SCH (10:11)
[2016-12-24] MEDS: ATORVASTATIN CA 10 MG TABLET (FP) PO SCH (10:11)
[2016-12-24] MEDS: POLYETHYLENE GLYCOL 3350 119 GM BTL PO SCH (10:11)
[2016-12-24] MEDS: PANTOPRAZOLE 40 MG TABLET (FP) PO SCH ×2 (10:11→21:06)
[2016-12-24] MEDS: METOPROLOL SUCCINATE 100 MG TAB.SR.24H (FP) PO SCH (10:12)
[2016-12-24] MEDS: CHOLECALCIFEROL (VITAMIN D3) 1,000 UNIT TABLET (FP) PO SCH (10:12)
[2016-12-24] MEDS: traMADol HCL 50 MG TABLET PO PRN ×2 (11:03→21:06)
[2016-12-24 14:22] LABS: ANION GAP 9 (8-16); CALCIUM 8.8 mg/dl (8.4-10.2); CO2 26 mmol/L (22-28); CREATININE 0.8 mg/dl (0.6-1.3); GLUCOSE,RANDOM 119 mg/dl (74-106)
[2016-12-24] MEDS: WARFARIN NA 2 MG TABLET (UD) PO SCH (18:19)
[2016-12-24] MEDS: ALPRAZolam 0.25 MG TABLET PO PRN (21:06)
[2016-12-24] MEDS: FINASTERIDE 5 MG TABLET (FP) PO SCH (21:06)
[2016-12-24] MEDS: DOCUSATE SODIUM 100 MG CAPSULE (FP) PO SCH (21:07)
[2016-12-24] MEDS: PRAMIPEXOLE DIHYDROCHLORIDE 0.125 MG TABLET PO SCH (21:10)
[2016-12-25] MEDS: DOCUSATE SODIUM 100 MG CAPSULE (FP) PO SCH ×3 (05:12→21:07)
[2016-12-25] MEDS: SERTRALINE HCL 25 MG TABLET (FP) PO SCH (05:13)
[2016-12-25 09:32] LABS: MCH 33.1 pg (25.7-33.7); MCHC 33.2 g/dl (32.0-35.9); MEAN CELL VOLUME 99.8 fl (80-96); MEAN PLT VOLUME 8.4 fl (7.5-11.1); PLATELET COUNT 189 K/MM3 (134-434); RDW 13.1 % (11.9-15.9); WHITE BLOOD COUNT 6.8 K/mm3 (4.0-10.8)
[2016-12-25] MEDS: TAMSULOSIN HCL 0.4 MG CAP.ER.24H (FP) PO SCH (09:46)
[2016-12-25] MEDS: FOLIC ACID 1 MG TABLET (FP) PO SCH (09:46)
[2016-12-25] MEDS: FUROSEMIDE 40 MG TABLET (FP) PO SCH (09:47)
[2016-12-25] MEDS: ATORVASTATIN CA 10 MG TABLET (FP) PO SCH (09:47)
[2016-12-25] MEDS: MULTIVITAMINS THER W-MINERALS COMBO TABLET (FP) PO SCH (09:48)
[2016-12-25] MEDS: traMADol HCL 50 MG TABLET PO PRN ×2 (09:48→18:21)
[2016-12-25] MEDS: PANTOPRAZOLE 40 MG TABLET (FP) PO SCH ×2 (09:48→21:07)
[2016-12-25] MEDS: METOPROLOL SUCCINATE 100 MG TAB.SR.24H (FP) PO SCH (09:48)
[2016-12-25] MEDS: POLYETHYLENE GLYCOL 3350 119 GM BTL PO SCH (09:49)
[2016-12-25 09:56] LABS: ALBUMIN 3.9 g/dl (3.5-5.0); ANION GAP 8 (8-16); BILIRUBIN,TOTAL 0.8 mg/dl (0.2-1.0); CO2 28 mmol/L (22-28); CREATININE 0.7 mg/dl (0.6-1.3); GLUCOSE,RANDOM 103 mg/dl (74-106); SGOT/AST 22 U/L (10-42); TOT PROT 6.2 g/dl (6.4-8.3)
[2016-12-25 09:57] LABS: ALK PHOS 61 U/L (32-92); SGPT/ALT 19 U/L (10-40)
[2016-12-25] MEDS: CHOLECALCIFEROL (VITAMIN D3) 1,000 UNIT TABLET (FP) PO SCH (10:41)
[2016-12-25 11:54] LABS: INR 2.9 (0.82-1.09); PROTHROMBIN TIME (PATIENT) 31.8 SEC (10.2-13.0)
[2016-12-25] MEDS: ALPRAZolam 0.25 MG TABLET PO PRN ×2 (12:41→21:07)
--- NOTE | 2016-12-25 12:43 | PN ---
Physical Exam: SUBJECTIVE: Patient seen and examined OBJECTIVE: Vital Signs Period Temp Pulse Resp BP Sys/Hurst Pulse Ox Last 24 Hr 97.8 F-98.4 F 62-64 18-18 121-121/53-61 100-100 GENERAL: The patient is awake, alert, and fully oriented, in no acute distress. HEAD: Normal with no signs of trauma. EYES: PERRL, extraocular movements intact, sclera anicteric, conjunctiva clear. No ptosis. ENT: Ears normal, nares patent, oropharynx clear without exudates, moist mucous membranes. NECK: Trachea midline, full range of motion, supple. LUNGS: Breath sounds equal, clear to auscultation bilaterally, no wheezes, no crackles, no accessory muscle use. HEART: Regular rate and rhythm, S1, S2 without murmur, rub or gallop. ABDOMEN: Soft, nontender, nondistended, normoactive bowel sounds, no guarding, no rebound, no hepatosplenomegaly, no masses. EXTREMITIES: 2+ pulses, warm, well-perfused, no edema. NEUROLOGICAL: Cranial nerves II through XII grossly intact. Normal speech, gait not observed. PSYCH: Normal mood, normal affect. SKIN: Warm, dry, normal turgor, no rashes or lesions noted Laboratory Results - last 24 hr 12/25/16 12/25/16 12/25/16 08:00 08:00 09:00 WBC 6.8 RBC 4.40 Hgb 14.6 Hct 43.9 MCV 99.8 H MCH 33.1 MCHC 33.2 RDW 13.1 Plt Count 189 MPV 8.4 PT with INR INR Sodium Potassium Chloride Carbon Dioxide Anion Gap BUN Creatinine Creat Clearance w eGFR Random Glucose Calcium Total Bilirubin AST ALT Alkaline Phosphatase Total Protein Albumin Urine Osmolality 164 L D Ur Random Sodium 24 L Ur Random Potassium 6.6 L Ur Random Chloride 18 L Urine Creatinine 23.0 12/25/16 12/25/16 09:00 11:30 WBC RBC Hgb Hct MCV MCH MCHC RDW Plt Count MPV PT with INR 31.8 H INR 2.90 H Sodium 134 L Potassium 4.2 Chloride 98 Carbon Dioxide 28 Anion Gap 8 BUN 12 Creatinine 0.7 Creat Clearance w eGFR > 60 Random Glucose 103 Calcium 9.0 Total Bilirubin 0.8 AST 22 ALT 19 Alkaline Phosphatase 61 Total Protein 6.2 L Albumin 3.9 Urine Osmolality Ur Random Sodium Ur Random Potassium Ur Random Chloride Urine Creatinine Active Medications Generic Name Dose Route Start Last Admin Trade Name Freq PRN Reason Stop Dose Admin Acetaminophen 650 mg 12/21/16 13:59 12/22/16 00:57 Tylenol - PO 650 mg Q6H PRN Administration FEVER OR PAIN Al Hydroxide/Mg Hydroxide 30 ml 12/21/16 08:39 12/23/16 12:24 Mylanta Oral Suspension - PO 30 ml Q6H PRN Administration DYSPEPSIA Atorvastatin Calcium 10 mg 12/21/16 10:00 12/25/16 09:47 Lipitor - PO 10 mg DAILY [facility] Administration Cholecalciferol 1,000 unit 12/21/16 10:00 12/25/16 10:41 Vitamin D3 - PO 1,000 unit DAILY [facility] Administration Docusate Sodium 100 mg 12/22/16 14:00 12/25/16 05:12 Colace - PO Not Given TID K[facility] Finasteride 5 mg 12/20/16 22:00 12/24/16 21:06 Proscar - PO 5 mg HS [facility] Administration Folic Acid 1 mg 12/21/16 10:00 12/25/16 09:46 Folic Acid - PO 1 mg DAILY [facility] Administration Furosemide 20 mg 12/21/16 10:00 12/25/16 09:47 Lasix - PO 20 mg DAILY K[facility] Administration Metoprolol Succinate 50 mg 12/21/16 12:34 12/25/16 09:48 Toprol Xl - PO 50 mg DAILY K[facility] Administration Multivitamins/Minerals 1 each 12/23/16 10:00 12/25/16 09:48 Theragran-M PO 1 each DAILY K[facility] Administration Non-Formulary Medication 1 each 12/20/16 22:00 Light Mineral Oil/Min Oil/Pf [Retaine Mgd Eye Drops] OU BID [facility] Pantoprazole Sodium 40 mg 12/20/16 22:00 12/25/16 09:48 Protonix - PO 40 mg BID K[facility] Administration Polyethylene Glycol 17 gm 12/22/16 12:30 12/25/16 09:49 Miralax (For Daily Use) - PO Not Given DAILY [facility] Pramipexole Dihydrochloride 0.125 mg 12/21/16 22:00 12/24/16 21:10 Mirapex - PO 0.125 mg HS K[facility] Administration Tamsulosin HCl 0.4 mg 10/15/17 10:00 12/25/16 09:46 Flomax - PO 0.4 mg DAILY K[facility] Administration Tramadol HCl 50 mg 12/24/16 20:21 12/25/16 09:48 Ultram - PO 50 mg Q6H PRN Administration PAIN Warfarin Sodium 2 mg 12/20/16 18:00 12/24/16 18:19 Coumadin - PO 2 mg DAILY@1800 K[facility] Administration ASSESSMENT/PLAN: 81 year-old male with a PMH significant for HTN, HLD, afib on coumadin, heart failure, spinal stenosis, BPH, and remote colon cancer status post resection, who presented to the ED with progressively worsening weakness in bilateral lower extremities. 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 --MRI Thoracic demonstrates multiple levels of spondylosis with some deformation of the thoracic spinal cord --Dr Del Valle recommending cervical decompression and fusion but pt would like second opinion and is not open to immediate surgical intervention Hyponatremia --improved Na 134 --continue fluid restrict GERD - cont protonix BID - maalox PRN Malnutrition in chronic disease - Meets criteria for malnutrition of chronic illness r/t decreased energy intake and weight loss as evidenced by pt reporting <75% intake >3 months, 15% weight loss x 6 months - likley related to GERD sx which have improved since initiation of PPI at home and anxiety which has improved with zoloft - encourage adequate intake - food preferences reviewed with pt, agrred to chocolate enlive ensure - 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 A.fib - Continue Coumadin, INR 2.9 - Continue Toprol XL for rate control Restless leg syndrome - Pt reports improvement with Mirapex, cont same CHF - appears euvolemic continue home Lasix BPH - Continue Proscar - Continue Flomax Anxiety --discussed discharge planning in presence of daughter, patient became extremely angry, agitated, argumentative --spoke with daughter at length, patient has exhibited worsening symptoms of depression, anxiety over time --ordered standing low dose lorazepam --hold Zoloft --needs outpatient psych evaluation; should be done on admission to [facility] F/E/N: - Monitor electrolytes -regular diet DVT Prophylaxis: - On Coumadin Dispo: discharge to [facility] CODE STATUS: FULL CODE Visit type - Emergency Visit Emergency Visit: Yes ED Registration Date: 12/24/16 Care time: The patient presented to the Emergency Department on the above date and was hospitalized for further evaluation of their emergent condition. - New Patient This patient is new to me today: Yes Date on this admission: 12/25/16 - Critical Care Critical Care patient: No
--- NOTE | 2016-12-25 16:36 | CONSULT ---
Consult Consult Specialty:: Nephrology Reason for Consultation:: hyponatremia - History of Present Illness Chief Complaint: lower ext weakness History of Present Illness: Pt is a 81 year old male with pmhx of HTN, hyponatremia, colon cancer and a-fib who presents to the ER with lower extremity weakness. I was called to evaluate him for hyponatremia. He has had low sodium on previous lab results. He denies shortness of breath. He is on lasix for htn and lower ext edema. He currently does not have lower extremity edema. He says he tries to drink as much water as he can and he is always thirsty. He has upwards of 3 to 4 liters per day. He denies chest pain or palpitations. - History Source History Provided By: Patient, Medical Record - Past Medical History Cardio/Vascular: Yes: AFIB, HTN, Hyperlipdemia Gastrointestinal: Yes: GERD, Other (adhesions/recurrent SBO) Renal/: Yes: BPH Musculoskeletal: Yes: Osteoarthritis (right hip, left knee) ENT: Yes: Allergic Rhinitis - Past Surgical History Past Surgical History: Yes: Colectomy (2001), Hernia Repair (2002) - Alcohol/Substance Use Hx Alcohol Use: No History of Substance Use: reports: None - Smoking History Smoking history: Never smoked Have you smoked in the past 12 months: No Aproximately how many cigarettes per day: 0 - Social History ADL: Independent Home Medications - Allergies Allergies/Adverse Reactions: Allergies Allergy/AdvReac Type Severity Reaction Status Date / Time Penicillins Allergy Unknown Verified 12/20/16 11:06 aspirin Allergy Rash Verified 12/20/16 11:06 - Home Medications Home Medications: Ambulatory Orders Atorvastatin Ca [Lipitor] 10 mg PO DAILY 11/28/13 Finasteride 5 mg PO HS 11/28/13 Irbesartan [Avapro] 300 mg PO DAILY 11/28/13 Metoprolol Succinate [Toprol Xl] 50 mg PO DAILY 11/28/13 Tamsulosin HCl [Flomax -] 0.4 mg PO DAILY 11/28/13 Folic Acid 1 mg PO DAILY tablet 12/19/13 Furosemide [Lasix -] 20 mg PO DAILY 03/06/14 Tramadol HCl 50 mg PO TID PRN #15 tablet 01/26/15 Acetaminophen [Tylenol] 500 mg PO Q6H 07/01/16 Cholecalciferol (Vitamin D3) [Vitamin D3 -] 1,000 unit PO DAILY 07/01/16 Esomeprazole Magnesium 40 mg PO DAILY 07/01/16 Multivit-Min/FA/Lycopen/Lutein [Centrum Silver Tablet] 1 each PO DAILY 07/01/16 Warfarin Sodium [Coumadin] 2.5 mg PO DAILY 07/01/16 Docusate Sodium [Stool Softener] 100 mg PO ASDIR 12/20/16 Light Mineral Oil/Min Oil/Pf [Retaine Mgd Eye Drops] 1 each OU BID 12/20/16 Sertraline HCl [Zoloft] 25 mg PO DAILY 12/20/16 Family Disease History - Family Disease History Family Disease History: Other: Father ( 63 lung ca), Mother ( 60 throat ca) Review of Systems - Review of Systems Constitutional: reports: Malaise Eyes: reports: No Symptoms HENT: reports: No Symptoms Neck: reports: No Symptoms Cardiovascular: reports: No Symptoms Respiratory: reports: No Symptoms Gastrointestinal: reports: No Symptoms Genitourinary: reports: No Symptoms Musculoskeletal: reports: Muscle Weakness Integumentary: reports: No Symptoms Neurological: reports: No Symptoms Endocrine: reports: No Symptoms Hematology/Lymphatic: reports: No Symptoms Psychiatric: reports: No Symptoms Physical Exam Vital Signs: Vital Signs Temperature 98.4 F 12/25/16 06:00 Pulse Rate 64 12/25/16 06:00 Respiratory Rate 18 12/25/16 08:39 Blood Pressure 121/61 12/25/16 06:00 O2 Sat by Pulse Oximetry (%) 100 12/25/16 08:39 Constitutional: Yes: Calm Eyes: Yes: Conjunctiva Clear HENT: Yes: Atraumatic Neck: Yes: Supple Cardiovascular: Yes: S1, S2 Respiratory: Yes: CTA Bilaterally Gastrointestinal: Yes: Soft Renal/: Yes: WNL Musculoskeletal: Yes: WNL Edema: No Neurological: Yes: Oriented Psychiatric: Yes: Oriented Labs: CBC, BMP 12/25/16 09:00 12/25/16 09:00 Laboratory Tests 11/07/14 01/21/15 01/22/15 07:00 23:00 08:00 Sodium 134 L 130 L 134 L Serum Osmolality Urine Osmolality Ur Random Sodium 01/23/15 07/24/16 10/06/16 07:30 07:35 09:13 Sodium 135 L 138 137 Serum Osmolality Urine Osmolality Ur Random Sodium 12/20/16 12/21/16 12/22/16 11:30 07:00 07:23 Sodium 129 L 132 L 131 L Serum Osmolality Urine Osmolality Ur Random Sodium 12/23/16 12/23/16 12/24/16 07:20 07:30 08:00 Sodium 134 L 130 L Serum Osmolality 276 L Urine Osmolality Ur Random Sodium 12/24/16 12/25/16 12/25/16 13:50 08:00 08:00 Sodium 130 L Serum Osmolality Urine Osmolality 164 L D Ur Random Sodium 24 L 12/25/16 09:00 Sodium 134 L Serum Osmolality Urine Osmolality Ur Random Sodium Imaging - Results Chest X-ray: Report Reviewed Problem List - Problems (1) Hyponatremia Code(s): E87.1 - HYPO-OSMOLALITY AND HYPONATREMIA Assessment/Plan Current Medications Generic Name Dose Route Start Last Admin Trade Name Freq PRN Reason Stop Dose Admin Acetaminophen 650 mg 12/21/16 13:59 12/22/16 00:57 Tylenol - PO 650 mg Q6H PRN Administration FEVER OR PAIN Al Hydroxide/Mg Hydroxide 30 ml 12/21/16 08:39 12/23/16 12:24 Mylanta Oral Suspension - PO 30 ml Q6H PRN Administration DYSPEPSIA Alprazolam 0.5 mg 12/25/16 13:00 Xanax - PO Q12H PRN Atorvastatin Calcium 10 mg 12/21/16 10:00 12/25/16 09:47 Lipitor - PO 10 mg DAILY K[facility] Administration Cholecalciferol 1,000 unit 12/21/16 10:00 12/25/16 10:41 Vitamin D3 - PO 1,000 unit DAILY K[facility] Administration Docusate Sodium 100 mg 12/22/16 14:00 12/25/16 14:00 Colace - PO 100 mg TID K[facility] Administration Finasteride 5 mg 12/20/16 22:00 12/24/16 21:06 Proscar - PO 5 mg HS K[facility] Administration Folic Acid 1 mg 12/21/16 10:00 12/25/16 09:46 Folic Acid - PO 1 mg DAILY K[facility] Administration Furosemide 20 mg 12/21/16 10:00 12/25/16 09:47 Lasix - PO 20 mg DAILY K[facility] Administration Metoprolol Succinate 50 mg 12/21/16 12:34 12/25/16 09:48 Toprol Xl - PO 50 mg DAILY K[facility] Administration Multivitamins/Minerals 1 each 12/23/16 10:00 12/25/16 09:48 Theragran-M PO 1 each DAILY K[facility] Administration Non-Formulary Medication 1 each 12/20/16 22:00 Light Mineral Oil/Min Oil/Pf [Retaine Mgd Eye Drops] OU BID K[facility] Pantoprazole Sodium 40 mg 12/20/16 22:00 12/25/16 09:48 Protonix - PO 40 mg BID K[facility] Administration Polyethylene Glycol 17 gm 12/22/16 12:30 12/25/16 09:49 Miralax (For Daily Use) - PO Not Given DAILY K[facility] Pramipexole Dihydrochloride 0.125 mg 12/21/16 22:00 12/24/16 21:10 Mirapex - PO 0.125 mg HS K[facility] Administration Tamsulosin HCl 0.4 mg 12/21/16 10:00 12/25/16 09:46 Flomax - PO 0.4 mg DAILY K[facility] Administration Tramadol HCl 50 mg 12/24/16 20:21 12/25/16 09:48 Ultram - PO 50 mg Q6H PRN Administration PAIN Warfarin Sodium 2 mg 12/20/16 18:00 12/24/16 18:19 Coumadin - PO 2 mg DAILY@1800 K[facility] Administration Impression 1. hyponatremia 2. htn 3. a-fib 4. hx colon cancer 5. anxiety Plan - urine osm is lower than plasma osm - restrict free water - likely hyponatremia is in part from polydipsia - repeat labs in am - will need to monitor sodium - has has had hyponatremia going back to 2010 - discussed with pt and his daughter Dr Goldstein
[2016-12-25] MEDS: WARFARIN NA 2 MG TABLET (UD) PO SCH (18:00)
[2016-12-25] MEDS ORDERED: PT OWN MED DRAWER 7, Y5N ONE (21:05)
[2016-12-25] MEDS: FINASTERIDE 5 MG TABLET (FP) PO SCH (21:07)
[2016-12-25] MEDS: PRAMIPEXOLE DIHYDROCHLORIDE 0.125 MG TABLET PO SCH (22:30)
[2016-12-26] MEDS: DOCUSATE SODIUM 100 MG CAPSULE (FP) PO SCH ×2 (06:29→13:58)
[2016-12-26 07:38] LABS: BASOPHIL 1.1 % (0-2.0); MCHC 34.3 g/dl (32.0-35.9); MEAN CELL VOLUME 99.3 fl (80-96); MEAN PLT VOLUME 8.1 fl (7.5-11.1); NEUTROPHILS 71.2 % (42.8-82.8); PLATELET COUNT 174 K/MM3 (134-434); RDW 13.5 % (11.9-15.9); WHITE BLOOD COUNT 7.1 K/mm3 (4.0-10.8)
[2016-12-26 07:55] LABS: INR 3.01 (0.82-1.09)
[2016-12-26 07:56] LABS: ALBUMIN 3.6 g/dl (3.5-5.0); ALK PHOS 57 U/L (32-92); ANION GAP 4 (8-16); BILIRUBIN,TOTAL 0.8 mg/dl (0.2-1.0); CO2 31 mmol/L (22-28); CREATININE 0.7 mg/dl (0.6-1.3); GLUCOSE,RANDOM 87 mg/dl (74-106); MAGNESIUM 1.9 mg/dL (1.8-2.4); SGOT/AST 17 U/L (10-42); SGPT/ALT 17 U/L (10-40); TOT PROT 5.6 g/dl (6.4-8.3)
[2016-12-26] MEDS: FUROSEMIDE 40 MG TABLET (FP) PO SCH (10:11)
[2016-12-26] MEDS: PANTOPRAZOLE 40 MG TABLET (FP) PO SCH (10:11)
--- NOTE | 2016-12-26 10:11 | DS ---
Physical Exam: SUBJECTIVE: Patient seen and examined OBJECTIVE: Vital Signs Period Temp Pulse Resp BP Sys/Hurst Pulse Ox Last 24 Hr 98.3 F 65 18-19 122/62 100-100 PHYSICAL EXAM GENERAL: The patient is awake, alert, and fully oriented, in no acute distress. HEAD: Normal with no signs of trauma. EYES: PERRL, extraocular movements intact, sclera anicteric, conjunctiva clear. ENT: Ears normal, nares patent, oropharynx clear without exudates, moist mucous membranes. NECK: Trachea midline, full range of motion, supple. LUNGS: Breath sounds equal, clear to auscultation bilaterally, no wheezes, no crackles, no accessory muscle use. HEART: Irregular without murmur, rub or gallop. ABDOMEN: Soft, nontender, nondistended, normoactive bowel sounds, no guarding, no rebound, no hepatosplenomegaly, no masses. EXTREMITIES: 2+ pulses, warm, well-perfused, no edema. NEUROLOGICAL: Cranial nerves II through XII grossly intact. Normal speech, gait not observed. PSYCH: Normal mood, normal affect. SKIN: Warm, dry, normal turgor, no rashes or lesions noted. LABS Laboratory Results - last 24 hr 12/25/16 12/25/16 12/25/16 08:00 08:00 11:30 WBC RBC Hgb Hct MCV MCH MCHC RDW Plt Count MPV Neutrophils % Lymphocytes % Monocytes % Eosinophils % Basophils % PT with INR 31.8 H INR 2.90 H Sodium Potassium Chloride Carbon Dioxide Anion Gap BUN Creatinine Creat Clearance w eGFR Random Glucose Calcium Magnesium Total Bilirubin AST ALT Alkaline Phosphatase Total Protein Albumin Urine Osmolality 164 L D Ur Random Sodium 24 L Ur Random Potassium 6.6 L Ur Random Chloride 18 L Urine Creatinine 23.0 12/26/16 12/26/16 12/26/16 07:00 07:00 07:00 WBC 7.1 RBC 4.00 Hgb 13.6 Hct 39.7 MCV 99.3 H MCH 34.0 H MCHC 34.3 RDW 13.5 Plt Count 174 MPV 8.1 Neutrophils % 71.2 Lymphocytes % 18.6 D Monocytes % 7.1 Eosinophils % 2.0 D Basophils % 1.1 D PT with INR 33.0 H INR 3.01 H Sodium 132 L Potassium 4.1 Chloride 97 L Carbon Dioxide 31 H Anion Gap 4 L BUN 15 D Creatinine 0.7 Creat Clearance w eGFR > 60 Random Glucose 87 Calcium 9.0 Magnesium 1.9 Total Bilirubin 0.8 AST 17 D ALT 17 Alkaline Phosphatase 57 Total Protein 5.6 L Albumin 3.6 Urine Osmolality Ur Random Sodium Ur Random Potassium Ur Random Chloride Urine Creatinine HOSPITAL COURSE: Date of Admission:12/24/16 Date of Discharge: 12/26/16 Minutes to complete discharge: 40 Discharge Summary Reason For Visit: HYPONATREMIA Current Active Problems Hyponatremia (Acute) Hospital Course: This is a 81 year-old male with a PMH significant for HTN, HLD, afib on Coumadin, hyponatremia,heart failure, spinal stenosis, BPH, and remote colon cancer status post resection, who presented to the ED with progressively worsening weakness in bilateral lower extremities. MRI Cervical demonstrates spondylosis with osteophytes and hypertrophic posterior longitudinal ligament which aggravates a congenital cervical stenosis and effaces the ventral and dorsal CSF spaces and deforms the contours of the cervical spinal cord; particularly aggravated between C2 and C5 where hypertrophic ligamentum flavum significantly contribute to spinal cord compression. MRI Thoracic demonstrates multiple levels of spondylosis with some deformation of the thoracic spinal cord. Pt was evaluated by neuro surgery Dr Del Valle recommend cervical decompression and fusion but pt would like second opinion and is not open to immediate surgical intervention. Pt eval done during the hospital stay, recommend Rehab which arranged at the [facility]. *Hyponatremia : Na 129 on admission,hx of chronic hyponatremia, urine osmolality is lower than plasma osmolality. Pt was evaluated by renal Dr. Moore,hyponatremia likely due to polydipsia, recommend fluid restriction 1L, Na level improved Na 132-134,remains asymptomatic, recommend outpatient followup on Na level. *GERD: Will continue on home dose Nexium and Maalox PRN. *Malnutrition in chronic disease: Meets criteria for malnutrition of chronic illness r/t decreased energy intake and weight loss as evidenced by pt reporting <75% intake >3 months, 15% weight loss x 6 months. Likely related to GERD sx which have improved since initiation of PPI at home and anxiety which has improved with Zoloft,encourage adequate intake, will continue on heart healthy diet. Hx of A.fib, HR remains controlled,noted to have supratherapeutic INR upon admission, Coumadin dose decreased to 2mg daily, now INR level 3.01 today, will hold off on Coumadin today and recommend to follow up on INR. Will resume on Toprol. *Restless leg syndrome: Will continue on Mirapex. ?CHF/ lower extemity edema: Pt appears euvolemic, will continue on home Lasix, no edema note now. *BPH: WIll continue Proscar and Flomax. *Anxiety: Will resume on home dose Zoloft and recommend out pt PSY consult * HTN: BP controlled, will continue on home meds. Condition: Stable - Instructions Diet, Activity, Other Instructions: Return to the emergency department for new, worsening or persistent symptoms. Eat a no added salt diet. Follow up with your primary doctor within one week of discharge from rehab. I have included dr. Del Valle's contact information should you choose to proceed with surgery. You may contact your doctor to obtain a provider for a second opinion. To hold Coumadin today and followup on INR Followup on Sodium level. Fluid restriction. Recommend outpatient psych evaluation; should be done on admission to [facility] for anxiety/depression. Referrals: Ricky Chen MD, [facility] [Staff Physician] - (f/u upon DC from rehab if surgery desired) Armen Lawson [Non Staff, Medical] - (within one week of discharge from rehab) Disposition: CARE HOME FACILITY - Home Medications Comprehensive Discharge Medication List: Ambulatory Orders Atorvastatin Ca [Lipitor] 10 mg PO DAILY 11/28/13 Finasteride 5 mg PO HS 11/28/13 Irbesartan [Avapro] 300 mg PO DAILY 11/28/13 Metoprolol Succinate [Toprol Xl] 50 mg PO DAILY 11/28/13 Tamsulosin HCl [Flomax -] 0.4 mg PO DAILY 11/28/13 Folic Acid 1 mg PO DAILY tablet 12/19/13 Furosemide [Lasix -] 20 mg PO DAILY 03/06/14 Tramadol HCl 50 mg PO TID PRN #15 tablet 01/26/15 Acetaminophen [Tylenol] 500 mg PO Q6H 07/01/16 Cholecalciferol (Vitamin D3) [Vitamin D3 -] 1,000 unit PO DAILY 07/01/16 Multivit-Min/FA/Lycopen/Lutein [Centrum Silver Tablet] 1 each PO DAILY 07/01/16 Light Mineral Oil/Min Oil/Pf [Retaine Mgd Eye Drops] 1 each OU BID 12/20/16 Alprazolam [Xanax] 0.5 mg PO Q12H PRN #0 tablet MDD 02 12/26/16 Docusate Sodium [Colace -] 100 mg PO TID PRN #90 mg 12/26/16 Polyethylene Glycol 3350 [Miralax 119 gm Btl -] 17 gm PO DAILY bottle 12/26/16 Pramipexole Dihydrochloride [Mirapex -] 0.125 mg PO HS tablet 12/26/16 Warfarin Na [Coumadin -] 2 mg PO DAILY@1800 tablet 12/26/16 This patient is new to me today: Yes Date on this admission: 12/26/16 Emergency Visit: Yes ED Registration Date: 12/24/16 Care time: The patient presented to the Emergency Department on the above date and was hospitalized for further evaluation of their emergent condition. Critical Care patient: No - Discharge Referral Referred to [facility] Med P.C.: No
[2016-12-26] MEDS: ATORVASTATIN CA 10 MG TABLET (FP) PO SCH (10:13)
[2016-12-26] MEDS: TAMSULOSIN HCL 0.4 MG CAP.ER.24H (FP) PO SCH (10:13)
[2016-12-26] MEDS: MULTIVITAMINS THER W-MINERALS COMBO TABLET (FP) PO SCH (10:13)
[2016-12-26] MEDS: METOPROLOL SUCCINATE 100 MG TAB.SR.24H (FP) PO SCH (10:13)
[2016-12-26] MEDS: POLYETHYLENE GLYCOL 3350 119 GM BTL PO SCH (10:14)
[2016-12-26] MEDS: FOLIC ACID 1 MG TABLET (FP) PO SCH (10:14)
[2016-12-26] MEDS: CHOLECALCIFEROL (VITAMIN D3) 1,000 UNIT TABLET (FP) PO SCH (10:14)
--- NOTE | 2016-12-26 13:25 | PN ---
Progress Note, Physician History of Present Illness: Pt seen and examined at bedside. He is awake and alert. He denies dizziness or loss of balance. He is eager to go to rehab. - Current Medication List Current Medications: Active Medications Acetaminophen (Tylenol -) 650 mg PO Q6H PRN PRN Reason: FEVER OR PAIN Last Admin: 12/22/16 00:57 Dose: 650 mg Al Hydroxide/Mg Hydroxide (Mylanta Oral Suspension -) 30 ml PO Q6H PRN PRN Reason: DYSPEPSIA Last Admin: 12/23/16 12:24 Dose: 30 ml Alprazolam (Xanax -) 0.5 mg PO Q12H PRN Last Admin: 12/25/16 21:07 Dose: 0.5 mg Atorvastatin Calcium (Lipitor -) 10 mg PO DAILY [facility] Last Admin: 12/26/16 10:13 Dose: 10 mg Cholecalciferol (Vitamin D3 -) 1,000 unit PO DAILY [facility] Last Admin: 12/26/16 10:14 Dose: 1,000 unit Docusate Sodium (Colace -) 100 mg PO TID [facility] Last Admin: 12/26/16 06:29 Dose: Not Given Finasteride (Proscar -) 5 mg PO HS [facility] Last Admin: 12/25/16 21:07 Dose: 5 mg Folic Acid (Folic Acid -) 1 mg PO DAILY [facility] Last Admin: 12/26/16 10:14 Dose: 1 mg Furosemide (Lasix -) 20 mg PO DAILY [facility] Last Admin: 12/26/16 10:11 Dose: 20 mg Metoprolol Succinate (Toprol Xl -) 50 mg PO DAILY [facility] Last Admin: 12/26/16 10:13 Dose: 50 mg Multivitamins/Minerals (Theragran-M) 1 each PO DAILY [facility] Last Admin: 12/26/16 10:13 Dose: 1 each Non-Formulary Medication (Light Mineral Oil/Min Oil/Pf [Retaine Mgd Eye Drops]) 1 each OU BID [facility] Pantoprazole Sodium (Protonix -) 40 mg PO BID [facility] Last Admin: 12/26/16 10:11 Dose: 40 mg Polyethylene Glycol (Miralax (For Daily Use) -) 17 gm PO DAILY [facility] Last Admin: 12/26/16 10:14 Dose: Not Given Pramipexole Dihydrochloride (Mirapex -) 0.125 mg PO HS [facility] Last Admin: 12/25/16 22:30 Dose: 0.125 mg Sertraline HCl (Zoloft -) 50 mg PO HS [facility] Tamsulosin HCl (Flomax -) 0.4 mg PO DAILY [facility] Last Admin: 12/26/16 10:13 Dose: 0.4 mg Tramadol HCl (Ultram -) 50 mg PO Q6H PRN PRN Reason: PAIN Last Admin: 12/25/16 18:21 Dose: 50 mg Warfarin Sodium (Coumadin -) 2 mg PO DAILY@1800 [facility] Last Admin: 12/25/16 18:00 Dose: 2 mg - Objective Vital Signs: Vital Signs Temperature 98.3 F 12/26/16 06:00 Pulse Rate 65 12/26/16 06:00 Respiratory Rate 18 12/26/16 07:57 Blood Pressure 122/62 12/26/16 06:00 O2 Sat by Pulse Oximetry (%) 100 12/26/16 07:57 Constitutional: Yes: Calm Eyes: Yes: Conjunctiva Clear HENT: Yes: Atraumatic Neck: Yes: Supple Cardiovascular: Yes: S1, S2 Respiratory: Yes: CTA Bilaterally Gastrointestinal: Yes: WNL Genitourinary: Yes: WNL Musculoskeletal: Yes: WNL Edema: No Neurological: Yes: Oriented Psychiatric: Yes: Oriented Labs: CBC, BMP 12/26/16 07:00 12/26/16 07:00 INR, PTT INR 3.01 (0.82-1.09) H 12/26/16 07:00 Problem List - Problems (1) Hyponatremia Code(s): E87.1 - HYPO-OSMOLALITY AND HYPONATREMIA Assessment/Plan Current Medications Generic Name Dose Route Start Last Admin Trade Name Freq PRN Reason Stop Dose Admin Acetaminophen 650 mg 12/21/16 13:59 12/22/16 00:57 Tylenol - PO 650 mg Q6H PRN Administration FEVER OR PAIN Al Hydroxide/Mg Hydroxide 30 ml 12/21/16 08:39 12/23/16 12:24 Mylanta Oral Suspension - PO 30 ml Q6H PRN Administration DYSPEPSIA Alprazolam 0.5 mg 12/25/16 13:00 12/25/16 21:07 Xanax - PO 0.5 mg Q12H PRN Administration Atorvastatin Calcium 10 mg 12/21/16 10:00 12/26/16 10:13 Lipitor - PO 10 mg DAILY [facility] Administration Cholecalciferol 1,000 unit 12/21/16 10:00 12/26/16 10:14 Vitamin D3 - PO 1,000 unit DAILY [place] Administration Docusate Sodium 100 mg 12/22/16 14:00 12/26/16 06:29 Colace - PO Not Given TID [facility] Finasteride 5 mg 12/20/16 22:00 12/25/16 21:07 Proscar - PO 5 mg HS [place] Administration Folic Acid 1 mg 12/21/16 10:00 12/26/16 10:14 Folic Acid - PO 1 mg DAILY [place] Administration Furosemide 20 mg 12/21/16 10:00 12/26/16 10:11 Lasix - PO 20 mg DAILY [facility] Administration Metoprolol Succinate 50 mg 12/21/16 12:34 12/26/16 10:13 Toprol Xl - PO 50 mg DAILY [facility] Administration Multivitamins/Minerals 1 each 12/23/16 10:00 12/26/16 10:13 Theragran-M PO 1 each DAILY [facility] Administration Non-Formulary Medication 1 each 12/20/16 22:00 Light Mineral Oil/Min Oil/Pf [Retaine Mgd Eye Drops] OU BID [facility] Pantoprazole Sodium 40 mg 12/20/16 22:00 12/26/16 10:11 Protonix - PO 40 mg BID [place] Administration Polyethylene Glycol 17 gm 12/22/16 12:30 12/26/16 10:14 Miralax (For Daily Use) - PO Not Given DAILY [facility] Pramipexole Dihydrochloride 0.125 mg 12/21/16 22:00 12/25/16 22:30 Mirapex - PO 0.125 mg HS [place] Administration Sertraline HCl 50 mg 12/26/16 22:00 Zoloft - PO HS [place] Tamsulosin HCl 0.4 mg 12/21/16 10:00 12/26/16 10:13 Flomax - PO 0.4 mg DAILY [place] Administration Tramadol HCl 50 mg 12/24/16 20:21 12/25/16 18:21 Ultram - PO 50 mg Q6H PRN Administration PAIN Warfarin Sodium 2 mg 12/20/16 18:00 12/25/16 18:00 Coumadin - PO 2 mg DAILY@1800 [facility] Administration Impression 1. hyponatremia chronic, going back to 2010 2. htn 3. a-fib 4. hx colon cancer 5. anxiety Plan - cont to restrict free water - will need to monitor sodium closely in rehab - discussed with pt and with his daughter - pt can follow with me in the office - discussed with medical team - will follow Dr Goldstein
[2016-12-26 13:34] VITALS: PULSE 68
[2016-12-26] MEDS: ALPRAZolam 0.25 MG TABLET PO PRN (13:59)
[2016-12-26] MEDS: traMADol HCL 50 MG TABLET PO PRN (14:01)
[2016-12-26 14:29] VITALS: BP 116/56; TEMP 98.3
[2016-12-26] MEDS ORDERED: SERTRALINE HCL 50 MG TABLET (FP) PO SCH (22:00)
== END 2016-12-26 15:10 | DRG 92 ==
LOC: FER 10:55 → FM/S 13:59 → INTOOBSV 13:59 → FM/S 12-23 21:10 → OBSVTOIN 12-24 18:44
PROVIDERS: ADMIT Internal Medicine; ATTEND Nurse Practitioner Family
DX: G95.20 Unspecified cord compression (principal); E87.1 Hypo-osmolality and hyponatremia; E46 Unspecified protein-calorie malnutrition; E78.5 Hyperlipidemia, unspecified; M48.02 Spinal stenosis, cervical region; K21.9 Gastro-esophageal reflux disease without esophagitis; Z68.26 Body mass index [BMI] 26.0-26.9, adult; I48.91 Unspecified atrial fibrillation; G25.81 Restless legs syndrome; N40.0 Benign prostatic hyperplasia without lower urinary tract symptoms; F41.9 Anxiety disorder, unspecified; I11.0 Hypertensive heart disease with heart failure; I50.9 Heart failure, unspecified; R62.7 Adult failure to thrive; R79.1 Abnormal coagulation profile; M47.892 Other spondylosis, cervical region
CPT/HCPCS: 36415; 71010-TC; 72050-TC; 72070-TC; 72100-TC; 72141-TC; 72146-TC; 80048; 80053; 81003; 81015; 82436; 82550; 82570; 83735; 83930; 83935; 84100; 84133; 84300; 84484; 85025; 85027; 85610; 93005; 97116-GP; 97161-GP; 99284-25; G0378